=== PATIENT | male | born 1945 | race Caucasian/White ===

== ENCOUNTER 2017-07-17 10:33 | Inpatient (IN) | payer MEDICARE ==
[~2017-07-17] VITALS: Ht 180.3 cm; Wt 85.5 kg
[2017-07-17] VITALS (10 sets, daily range): BP systolic 153–164; BP diastolic 77–81; PULSE 52–74; RESP 16; TEMP 97.8–98.2; O2SAT 96–98
[2017-07-17] MEDS ORDERED: LEVO25TA4 PO (12:53)
[2017-07-17] MEDS ORDERED: ASPI-516 CHEW (12:53)
[2017-07-17] MEDS ORDERED: NALOXONE HCL 0.4 MG/ML AMP IV PUSH PRN (14:45)
[2017-07-17] MEDS ORDERED: CHLORHEXIDINE GLUCONATE 4% SOLN 120 ML BTL TOPICAL SCH (14:45)
[2017-07-17] MEDS ORDERED: NITROGLYCERIN 0.4 MG SL 25 TABS/BTL SL PRN (14:45)
[2017-07-17] MEDS ORDERED: CEFAZOLIN INJ 500 MG in SODIUM CHLORIDE 0.9% IRR BTL 500 ML IRRIGATION SCH (14:45)
[2017-07-17] MEDS ORDERED: ONDANSETRON HCL 4 MG/2 ML VIAL IVP PRN (14:45)
[2017-07-17] MEDS ORDERED: INSULIN REGULAR (IV INFUSION) 100 UNITS in SODIUM CHLORIDE 0.9% INJ 99 ML IV PRN ×2 (14:45→15:15)
[2017-07-17] MEDS ORDERED: LACTULOSE SYRUP 20 GM/30 ML CUP PO PRN (14:45)
[2017-07-17] MEDS ORDERED: ceFAZolin 2 GM PREMIX 50 ML IV SCH (14:45)
[2017-07-17] MEDS ORDERED: BISACODYL 10 MG SUPP RECTAL PRN (14:45)
[2017-07-17] MEDS ORDERED: PAPAVERINE INJ 60 MG, NITROGLYCERIN INJ 100 MCG, DILTIAZEM INJ 100 MG in SODIUM CHLORID... IRRIGATION SCH (14:45)
[2017-07-17] MEDS ORDERED: MAGNESIUM HYDROXIDE SUSP 30 ML CUP PO PRN (14:45)
[2017-07-17] MEDS ORDERED: SODIUM CHLORIDE 0.9% FLUSH 10 ML FLUSH IV FLUSH PRN ×2 (14:45)
[2017-07-17] MEDS ORDERED: DEXTROSE 50% IN WATER 50 ML VIAL(D50) IV PUSH PRN (14:45)
[2017-07-17] MEDS ORDERED: METOPROLOL TARTRATE 25 MG TAB PO SCH (14:45)
[2017-07-17] MEDS ORDERED: SENNOSIDES 8.6 MG TAB PO PRN (14:45)
[2017-07-17] MEDS ORDERED: PAPAVERINE INJ 60 MG, NITROGLYCERIN INJ 100 MCG, VERAPAMIL INJ 100 MG in SODIUM CHLORID... IRRIGATION SCH (15:00)
--- NOTE | 2017-07-17 15:02 | PD.CAR.PN ---
CVT Progress Note Subjective/Hospital Course: pt seen and evaluated / full H&P to follow sts data discussed with pt RISK SCORES About the STS Risk Calculator Procedure: CAB Only Risk of Mortality: 2.2% Morbidity or Mortality: 18.258% Long Length of Stay: 8.488% Short Length of Stay: 33.515% Permanent Stroke: 2.413% Prolonged Ventilation: 12.217% DSW Infection: 0.513% Renal Failure: 3.337% Reoperation: 7.114% Objective: Vital Signs Date Time Temp Pulse Resp B/P (MAP) Pulse Ox O2 Delivery O2 Flow Rate FiO2 07/17/17 13:00 60 07/17/17 12:30 97.8 62 16 153/81 (105) 97 (1) Hyperlipemia (2) Hypothyroidism (3) Hypertension (4) Coronary artery disease (5) ETOH abuse Fariba Medina July 17, 2017 15:02
--- NOTE | 2017-07-17 15:21 | MH ---
cc: Jessica Denise MD DATE OF ADMISSION: 07/17/2017 HISTORY OF PRESENT ILLNESS: A 72-year-old male that has a family history where his father had a ruptured aortic aneurysm and his grandfather had a ruptured aortic aneurysm on the paternal side and wanted to be evaluated by cardiology. He had an abnormal EKG with a right bundle branch block and was told he had a probable prior [place] that he was not aware of. Had a positive stress test which showed anterior septal ischemia. The patient underwent cardiac catheterization by Dr. Eladio Davis which showed proximal disease at the bifurcation of the first diagonal. There is approximately 80-90% lesions, heavily calcified. The LAD after the first septal branch is 99-100% occluded with [place] 1 flow. The LAD fills via collaterals from the diagonal vessel in the circumflex system. The left circumflex had severe stenosis in the mid segment with an 80-90% lesion noted, 2 obtuse marginals were noted afterwards. The right coronary artery is also diseased. There is approximately a 50% lesion and a mid 90% lesion. The PDA had evidence of small aneurysm with and without another 90% lesion noted. There were collaterals from the conus branch to a probable ramus vessel on the other side versus the LAD. There was some mild left subclavian stenosis of 10-20% lesion in the vessel. The BRUNER was widely patent. Ejection fraction 60%. He did have an echocardiogram when he had his initial workup at Dr. Brandt's office, which showed an ejection fraction of 60-65%, mild LVH, trivial to mild mitral regurgitation, mild tricuspid regurgitation. The patient was transferred to our facility to be evaluated by Dr. Jessica Denise for coronary artery bypass grafting. 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 This was contributed to some type of ALLERGIC REACTION TO A TRICHOMONAS OUTBREAK at age 26, hyperlipidemia, gastroesophageal reflux disease, questionable prior [place], hypertension, hypothyroidism. PAST SURGICAL HISTORY: Bilateral hip replacements, bilateral hernia repairs, appendectomy. He had a left breast lumpectomy which was benign nodule 7 or 8 years ago. ALLERGIES: NO KNOWN ALLERGIES. MEDICATIONS: Home medications: Aspirin 81 mg, Levothyroxine 25 mcg p.o. daily. He was to be started on Crestor 5 and Imdur 30. FAMILY HISTORY: Father again from a ruptured aortic aneurysm. Grandfather from a ruptured aortic aneurysm. Also, mother from complications of rheumatic fever when she was age 15, which apparently caused kidney failure. SOCIAL HISTORY: The patient is , has 2 children, lives with a significant other. He smoked for about 30 years, 1 pack per day. He quit 10 years ago. He does drink 6 shots of [place] Mist daily, occasional marijuana. No IV drugs. REVIEW OF SYSTEMS: GENERAL: No night sweats, fever, heat and cold intolerance. SKIN: No psoriasis, itching or hives. HEENT: No blurred vision, hearing loss. RESPIRATORY: No cough, shortness of breath. CARDIOVASCULAR: No current chest pain, no paroxysmal nocturnal dyspnea and orthopnea. GASTROINTESTINAL: No diarrhea or vomiting. GENITOURINARY: No burning, frequency, urgency. 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 ENDOCRINOLOGY: Positive for hypothyroidism. PHYSICAL EXAMINATION: VITAL SIGNS: Blood pressure 150/80, heart rate is 62, temperature T-max 97.8. GENERAL: The patient is awake, alert, no acute distress. HEENT: Head is normocephalic, atraumatic. Pupils equal and reactive. Oral mucosa pink, moist. NECK: Supple. No JVD. HEART: Sounds S1, S2. Regular rate and rhythm. No audible rubs, murmurs, gallops. LUNGS: Clear to auscultation. No wheezes, rales or rhonchi. ABDOMEN: Soft, nontender, no masses or organomegaly. EXTREMITIES: No cyanosis, clubbing, or edema. LABORATORY DATA: Most recent lab work on 07/12/2017, shows a hemoglobin of 16, hematocrit of 47. White cell count of 5.5, platelet count of 288. Sodium 137, potassium 4.7, BUN of 23 with a creatinine of 1.07, fasting glucose of 95. Urinalysis was unremarkable. Chest x-ray results showed over inflated lungs, tortuous aorta. EKG sinus rhythm with a right bundle branch block. ASSESSMENT AND PLAN: This is a 72-year-old male, multivessel coronary disease, normal ejection fraction. Risk factors include prior MO, prior CVA, hypothyroidism. STS data will be evaluated and documented in the electronic record. The cardiac films will be evaluated by Dr. Jessica Denise. Evaluation of coronary artery bypass grafting. In the meantime, the patient will obtain full workup to also include CT of the chest to rule out heavily calcified aorta. Further planning per Dr. Jessica Denise. Dictated by: ENE Harrington Pt examined. Chart and coronary angiograms reviewed and findings discussed with the pt, his daughter and significant other. He has severe multi-vessel CAD. He also has a significant regular intake of alcohol on a daily basis. Will plan on proceeding with surgical revascularization as a second case on Saturday barring other clinical findings. MD SENA Hall/MANDI , 02:37 PM , 03:11 PM MTDD
[2017-07-17] MEDS: THIAMINE HCL 100 MG TAB PO SCH (16:36)
[2017-07-17] MEDS: ASPIRIN 81 MG CHEW TAB CHEW SCH (16:37)
[2017-07-17] MEDS: MULTIVITAMIN TAB PO SCH (16:37)
[2017-07-17] MEDS: FOLIC ACID 1 MG TAB PO SCH (16:37)
[2017-07-17] MEDS: LORazepam 2 MG/ML VIAL IV PUSH PRN ×2 (16:39→21:06)
--- NOTE | 2017-07-17 16:44 | RADRPT ---
EXAM DATE: 07/17/2017 4:39 PM EDT AGE/SEX: 72 years / Male INDICATIONS: Preop for cardiac surgery. CLINICAL DATA: This is the patient's initial encounter. Patient reports that signs and symptoms have been present for 1 day and indicates a pain score of 0/10. MEDICAL/SURGICAL HISTORY: Hypothyroidism. Cerebrovascular accident. Appendectomy. Hernia repa ir. Bilateral hip replacement. COMPARISON: No prior [place] exams available for comparison. VELOCITY PARAMETERS: ICA/CCA Ratio: Right 1.0 , Left 0.8 ICA: Right 77 cm/sec, Left 53 cm/sec CCA: Right 76 cm/sec, Left 65 cm/sec ECA: Right 75 cm/sec, Left 53 cm/sec Vertebral: Right 43 cm/sec antegrade, Left 42 cm/sec antegrade FINDINGS: Right Carotid: Minimal plaque is seen at the carotid bulb region. No significant stenosis is visuali zed. The waveforms are within normal limits. Left Carotid: Minimal plaque is seen at the carotid bulb region. No significant stenosis is visualiz ed. The waveforms are within normal limits. Other: None. CONCLUSION: Minimal plaque at the carotid bulb regions without a significant stenosis. Electronically signed by: Moe Christiansen MD 07/17/2017 4:43 PM EDT
--- NOTE | 2017-07-17 16:48 | RADRPT ---
EXAM DATE: 07/17/2017 4:43 PM EDT AGE/SEX: 72 years / Male INDICATIONS: Preop for cardiac surgery. CLINICAL DATA: This is the patient's initial encounter. Patient reports that signs and symptoms have been present for 1 day and indicates a pain score of 0/10. MEDICAL/SURGICAL HISTORY: Hypothyroidism. Cerebrovascular accident. Appendectomy. Bilateral h ip replacement. Hernia repair. COMPARISON: No prior [place] exams available for comparison. MEASUREMENTS: RIGHT THIGH: Proximal:__3 mm Mid:__ 2 mm Distal:__2 mm LEFT THIGH: Proximal:__4 mm Mid:__2 mm Distal:__2 mm RIGHT CALF: Proximal:__Non-visualized Mid:__Non-visualized Distal:__Non-visualized LEFT CALF: Proximal:__2 mm Mid:__2 mm Distal:__2 mm FINDINGS: The venous system of the lower extremities are patent by color Doppler imaging. Measurements of the leg veins (in mm) are listed above. CONCLUSION: 1. Venous mapping as above. Electronically signed by: Sreekanth Henry MD 07/17/2017 4:47 PM EDT
--- NOTE | 2017-07-17 16:48 | RADRPT ---
EXAM DATE: 07/17/2017 4:45 PM EDT AGE/SEX: 72 years / Male INDICATIONS: Preop for cardiac surgery. CLINICAL DATA: This is the patient's initial encounter. Patient reports that signs and symptoms have been present for 1 day and indicates a pain score of 0/10. MEDICAL/SURGICAL HISTORY: Hypothyroidism. Cerebrovascular accident. Appendectomy. Hernia repa ir. COMPARISON: No prior [place] exams available for comparison. TECHNIQUE: Venous ultrasound of both lower extremities was performed from the inguinal ligament to t he proximal calf. Real-time, color Doppler and spectral tracing, compression and augmentation techni ques were used. FINDINGS: Right Leg: There is normal compressibility of the deep venous system from the inguinal region to the proximal calf. No echogenic clot is seen in the lumen of the common femoral, femoral, popliteal, an d posterior tibial veins. There is a normal response of the venous system to proximal and distal aug mentation and respiration. Left Leg: There is normal compressibility of the deep venous system from the inguinal region to the proximal calf. No echogenic clot is seen in the lumen of the common femoral, femoral, popliteal, and posterior tibial veins. There is a normal response of the venous system to proximal and distal augm entation and respiration. CONCLUSION: 1. No evidence of DVT. Electronically signed by: Sreekanth Henry MD 07/17/2017 4:46 PM EDT
[2017-07-17 17:23] LABS: AUTOMATED NEUTROPHIL # 2.5 TH/MM3 (1.8-7.7); BASOPHIL % 1.1 % (0.0-2.0); EOSINOPHIL # 0.1 TH/MM3 (0-0.4); EOSINOPHIL % 2.2 % (0.0-4.0); HEMOGLOBIN 14.4 GM/DL (13.0-17.0); LYMPH % 16.1 % (9.0-44.0); LYMPHOCYTE # 0.6 TH/MM3 (1.0-4.8); MEAN CORPUSCULAR HEMOGLOBIN 32.8 PG (27.0-34.0); MEAN CORPUSCULAR HGB CONC 33.5 % (32.0-36.0); MONO % 8.8 % (0.0-8.0); MONOCYTE # 0.3 TH/MM3 (0-0.9); NEUT % 71.8 % (16.0-70.0); PLATELET COUNT 240 TH/MM3 (150-450); RED BLOOD COUNT 4.39 MIL/MM3 (4.50-5.90); RED CELL DISTRIBUTION WIDTH 15.2 % (11.6-17.2); WHITE BLOOD COUNT 3.5 TH/MM3 (4.0-11.0)
[2017-07-17 17:44] LABS: ALBUMIN 3.5 GM/DL (3.4-5.0); AST (GOT) 12 U/L (15-37); BICARBONATE 23.9 MEQ/L (21.0-32.0); BLOOD UREA NITROGEN 17 MG/DL (7-18); CALCIUM 8.7 MG/DL (8.5-10.1); CHLORIDE 106 MEQ/L (98-107); CREATININE 0.77 MG/DL (0.60-1.30); GLOMERULAR FILTRATION RATE 99 ML/MIN (>89); GLUCOSE,RANDOM 84 MG/DL (74-106); SODIUM (NA) 139 MEQ/L (136-145)
[2017-07-17 17:49] LABS: ALKALINE PHOSPHATASE 76 U/L (45-117); ALT (GPT) 17 U/L (12-78); TOTAL BILIRUBIN ADULT 0.7 MG/DL (0.2-1.0); TOTAL PROTEIN 7.1 GM/DL (6.4-8.2)
--- NOTE | 2017-07-17 20:09 | RADRPT ---
EXAM DATE: 07/17/2017 8:03 PM EDT AGE/SEX: 72 years / Male INDICATIONS: Pre-op CABG, evaluate for aortic calcifications. CLINICAL DATA: This is the patient's initial encounter. Patient reports that signs and symptoms have been present for 1 day and indicates a pain score of 0/10. MEDICAL/SURGICAL HISTORY: Cardiovascular disease. Cerebrovascular disease. None. RADIATION DOSE: 9.59 CTDI (mGy) COMPARISON: No prior [place] exams available for comparison. TECHNIQUE: Multiple contiguous axial images were obtained through the chest without contrast. Image s were obtained in suspended respiration using multiple row detector helical technique. Using automa owen exposure control and adjustment of the mA and/or kV according to patient size, radiation dose was kept as low as reasonably achievable to obtain optimal diagnostic quality images. FINDINGS: Lungs: The lungs are symmetrically aerated. No infiltrates or nodular densities are seen. There is some mild linear opacities in the anterior right mid lung suggesting scarring or atelectasis. Mediastinum: No evidence of middle mediastinal adenopathy. Heart is normal in size. Prominent calcif ications throughout the coronary arteries. There is calcification along the lateral margin of the asc ending aorta extending from 6:00 to 12:00 and some scattered areas of calcification along the medial acetabulum the aorta. The ascending aorta aorta measures 3.8 cm in AP dimension. A few scattered calc ifications about the aortic arch and descending aortic wall. Pleurae: No evidence of focal thickening or pleural effusion. Axillae: Unremarkable. Bony Structures: Unremarkable. Miscellaneous: There is a moderate size hiatus hernia measures 5.6 cm in width. CONCLUSION: 1. Prominent diffuse coronary artery calcifications. 2. Prominent calcifications along the lateral margin of the ascending aorta wall with normal dimensi on of the ascending aorta. 3. Moderate size hiatus hernia. Electronically signed by: George Allen MD 07/17/2017 8:08 PM EDT
--- NOTE | 2017-07-17 20:56 | RADRPT ---
EXAM DATE: 07/17/2017 8:52 PM EDT AGE/SEX: 72 years / Male INDICATIONS: Evaluate for pneumonia, pneumothorax, or communicable disease. Pre op CABG. CLINICAL DATA: This is the patient's initial encounter. Patient reports that signs and symptoms have been present for 1 day and indicates a pain score of 0/10. MEDICAL/SURGICAL HISTORY: None. None. COMPARISON: [facility], CT THORAX W/O CONTRAST, 07/17/2017. . FINDINGS: PA and lateral views of the chest demonstrate the lungs to be symmetrically aerated without evidence of mass, infiltrate or effusion. The cardiomediastinal contours are unremarkable. There are 2 gricelda trinh deformities in the lower thoracic bodies which causes accentuation of the thoracic kyphosis. Com pression deformities are both 50-60% loss of height anteriorly.. CONCLUSION: 1. The lungs are symmetrically aerated and clear. 2. There are 2 lower thoracic compression deformities causing accentuation of the lower thoracic kyp hosis, age indeterminate. Electronically signed by: George Allen MD 07/17/2017 8:55 PM EDT
[2017-07-17] MEDS: SODIUM CHLORIDE 0.9% FLUSH 10 ML FLUSH IV FLUSH SCH ×2 (21:00→21:05)
[2017-07-17] MEDS: DOCUSATE SODIUM 50 MG/SENNA 8.6 MG TAB PO SCH (21:00)
[2017-07-17] MEDS: ATORVASTATIN 40 MG TAB PO SCH (21:05)
[2017-07-17 22:39] LABS: HEMOGLOBIN A1C 5.3 % (4.3-6.0)
[2017-07-18] VITALS (23 sets, daily range): BP systolic 121–148; BP diastolic 67–84; PULSE 20–90; RESP 12–22; TEMP 97.2–98.9; O2SAT 94–98
[2017-07-18] MEDS: LORazepam 2 MG/ML VIAL IV PUSH PRN ×2 (01:16→05:15)
[2017-07-18 04:27] LABS: CHOLESTEROL/ HDL RATIO 3.06 RATIO
[2017-07-18 05:08] LABS: BILIRUBIN, URINE NEG (NEG); BLOOD, URINE NEG (NEG); GLUCOSE,URINE NEG (NEG); KETONE, URINE NEG (NEG); MUCUS URINE FEW /lpf (OCC); NITRITE,URINE NEG (NEG); PH, URINE 6.5 (5.0-8.5); SQUAMOUS EPITHELIAL CELL URINE 1 /hpf (0-5); URINE COLOR YELLOW (YELLW/STRAW); URINE LEUKOCYTE ESTERASE NEG (NEG)
[2017-07-18] MEDS: LEVOTHYROXINE SODIUM 25 MCG TAB PO SCH (06:00)
[2017-07-18] MEDS: ISOSORBIDE MONONITRATE 30 MG CR TAB (IMDUR) PO SCH (06:15)
[2017-07-18] MEDS: SODIUM CHLORIDE 0.9% FLUSH 10 ML FLUSH IV FLUSH SCH ×4 (09:00→20:13)
[2017-07-18] MEDS: FOLIC ACID 1 MG TAB PO SCH (09:06)
[2017-07-18] MEDS: THIAMINE HCL 100 MG TAB PO SCH (09:06)
[2017-07-18] MEDS: MULTIVITAMIN TAB PO SCH (09:06)
[2017-07-18] MEDS: ASPIRIN 81 MG CHEW TAB CHEW SCH (09:07)
[2017-07-18] MEDS: DOCUSATE SODIUM 50 MG/SENNA 8.6 MG TAB PO SCH ×2 (09:07→20:13)
--- NOTE | 2017-07-18 09:31 | RADRPT ---
EXAM DATE: 07/18/2017 9:24 AM EDT AGE/SEX: 72 years / Male INDICATIONS: Confusion status post falling and hit head. CLINICAL DATA: This is the patient's initial encounter. Patient reports that signs and symptoms have been present for 1 day and indicates a pain score of 3/10. MEDICAL/SURGICAL HISTORY: Hypertension. Cerebrovascular disease. Appendectomy. RADIATION DOSE: 56.35 CTDI (mGy) COMPARISON: No prior [place] exams available for comparison. TECHNIQUE: CT of the head without contrast. Using automated exposure control and adjustment of the mA and/or kV according to patient size, radiation dose was kept as low as reasonably achievable to ob tain optimal diagnostic quality images. FINDINGS: Cerebrum: Moderate diffuse cerebral atrophy. The ventricles are normal for degree of atrophy. Mild-t o-moderate periventricular white matter hypodensities. No evidence of midline shift, mass lesion, hem orrhage or acute infarction. No extraaxial fluid collections are seen. Posterior Fossa: The cerebellum and brainstem are intact. The 4th ventricle is midline. The cerebe llopontine angle is unremarkable. Extracranial: The visualized portion of the orbits is intact. Posterior scalp hematoma and pilar. Skull: The calvaria is intact. No evidence of skull fracture. CONCLUSION: 1. Senescent changes with mild to moderate periventricular ischemic white matter demyelination. 2. No acute intracranial abnormality. Electronically signed by: Landen Clements MD 07/18/2017 9:30 AM EDT
[2017-07-18] MEDS ORDERED: TETANUS/DIPHTHERIA TOXOID ADULT 0.5 ML VIAL IM ONE (10:45)
[2017-07-18] MEDS ORDERED: FLUMAZENIL 0.5 MG/5 ML VIAL IV PUSH PRN (10:45)
[2017-07-18] MEDS ORDERED: LORazepam 2 MG/ML VIAL IV PUSH PRN ×4 (10:45)
[2017-07-18] MEDS ORDERED: LORazepam 2 MG TAB PO PRN (10:45)
[2017-07-18] MEDS ORDERED: LORazepam 1 MG TAB PO PRN (10:45)
--- NOTE | 2017-07-18 10:53 | PD.CAR.PN ---
CVT Progress Note Subjective/Hospital Course: A 72-year-old male transfer from [facility], had an abnormal EKG with a right bundle branch block and was told he had a probable prior [place] that he was not aware of. Had a positive stress test which showed anterior septal ischemia. The patient underwent cardiac catheterization by Dr. Eladio Davis which showed proximal disease at the bifurcation of the first diagonal. There is approximately 80-90% lesions, heavily calcified. The LAD after the first septal branch is 99-100% occluded with [place] 1 flow. The LAD fills via collaterals from the diagonal vessel in the circumflex system. The left circumflex had severe stenosis in the mid segment with an 80-90% lesion noted, 2 obtuse marginals were noted afterwards. The right coronary artery is also diseased. There is approximately a 50% lesion and a mid 90% lesion. The PDA had evidence of small aneurysm with and without another 90% lesion noted. There were collaterals from the conus branch to a probable ramus vessel on the other side versus the LAD. There was some mild left subclavian stenosis of 10- 20% lesion in the vessel. The BRUNER was widely patent. Ejection fraction 60%. He did have an echocardiogram when he had his initial workup at Dr. Brandt's office, which showed an ejection fraction of 60-65%, mild LVH, trivial to mild mitral regurgitation, mild tricuspid regurgitation. Transferred for eval for CABG bypass grafting. 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 This was contributed to some type of ALLERGIC REACTION TO A TRICHOMONAS OUTBREAK at age 26, hyperlipidemia, gastroesophageal reflux disease, questionable prior [place], hypertension, hypothyroidism. Drinks 6- 8 shots of whisky per day 07/18 pt agitation last pm , nursing eval for CIWA protocol , given ativan got out of bed , unclothed fell hit his on door jam , sustained a 4cm length and 0.2cm deep area was irrigated with normal saline , cleansed with betadine and under sterile technique 5 pilar were placed to close wound wound is now closed and approximated ancef 1 gram q8 x 3 doses and TD dose IM given fall risk precautions, consult Hospitalist for medical management will now hold surgery until Saturday CT Brain: 1. Senescent changes with mild to moderate periventricular ischemic white matter demyelination. 2. No acute intracranial abnormality. Objective: GENERAL: pt awake , no agitation at present , eating breakfast with his fingers SKIN: Warm and dry. dry dressing to scalp HEAD: Normocephalic. EYES: No scleral icterus. No injection or drainage. [place] NECK: Supple, trachea midline. No JVD or lymphadenopathy. CARDIOVASCULAR: Regular rate and rhythm without murmurs, gallops, or rubs. RESPIRATORY: Breath sounds equal bilaterally. No accessory muscle use. GASTROINTESTINAL: Abdomen soft, non-tender, nondistended. MUSCULOSKELETAL: No cyanosis, or edema. BACK: Nontender without obvious deformity. No CVA tenderness. Vital Signs Date Time Temp Pulse Resp B/P (MAP) Pulse Ox O2 Delivery O2 Flow Rate FiO2 07/18/17 10:00 90 07/18/17 09:00 70 07/18/17 08:00 80 07/18/17 07:20 77 07/18/17 07:20 98.9 20 20 138/79 (98) 96 07/18/17 07:10 81 20 138/81 (100) 94 07/18/17 06:00 64 07/18/17 05:00 60 07/18/17 04:00 62 07/18/17 03:00 97.2 70 12 133/84 (100) 97 07/18/17 03:00 54 07/18/17 02:00 56 07/18/17 01:00 56 07/18/17 00:06 97.5 62 12 148/76 (100) 97 07/18/17 00:00 54 07/17/17 23:00 62 07/17/17 22:00 74 07/17/17 21:00 60 07/17/17 20:00 62 07/17/17 20:00 98.2 60 16 155/77 (103) 98 07/17/17 19:00 67 07/17/17 16:00 64 07/17/17 16:00 97.9 57 16 164/77 (106) 96 07/17/17 15:00 52 07/17/17 14:00 60 07/17/17 13:00 72 07/17/17 13:00 60 07/17/17 12:30 97.8 62 16 153/81 (105) 97 Labs: Laboratory Tests Test 07/18/17 03:42 07/18/17 04:40 Triglycerides Level 188 MG/DL (42-150) Cholesterol Level 227 MG/DL (120-200) LDL Cholesterol 115 MG/DL (0-99) HDL Cholesterol 74.0 MG/DL (40.0-60.0) Cholesterol/HDL Ratio 3.06 RATIO Urine Color YELLOW (YELLW/STRAW) Urine Turbidity CLEAR (CLEAR) Urine pH 6.5 (5.0-8.5) Urine Specific [place] 1.016 (1.002-1.035) Urine Protein NEG mg/dL (NEG-TRACE) Urine Glucose (UA) NEG mg/dL (NEG) Urine Ketones NEG mg/dL (NEG) Urine Occult Blood NEG (NEG) Urine Nitrite NEG (NEG) Urine Bilirubin NEG (NEG) Urine Urobilinogen LESS THAN 2.0 MG/DL (LESS Urine Leukocyte Esterase NEG (NEG) Urine RBC 1 /hpf (0-3) Urine WBC LESS THAN 1 /hpf (0-5) Urine Squamous Epithelial Cells 1 /hpf (0-5) Urine Mucus FEW /lpf (OCC) Microscopic Urinalysis Comment CULT NOT INDICATED Result Diagram: 07/17/17 1700 07/17/17 1700 Telemetry: NSR (1) Hyperlipemia Plan: on statin (2) Hypothyroidism Plan: on Synthroid (3) Hypertension (4) Coronary artery disease Plan: ASA, hold BB HR 60 (5) ETOH abuse Plan: CIWA protocol (6) Laceration Plan: pilar to occipital area ancef x 3 doses TD dose Fariba Medina July 18, 2017 10:53
--- NOTE | 2017-07-18 16:25 | PD.CONS ---
HPI Service [facility] Hospitalists Consult Requested By Primary Care Physician No Primary Care Physician Diagnoses: History of Present Illness 72-year-old male with a history of hyperlipidemia, coronary artery disease, GERD , chronic alcohol use of about 6 shots of whiskey daily who is admitted to [facility] for treatment of coronary artery disease requiring CABG. Patient says he was doing all right until last night. He became agitated, fell , with laceration to the posterior skull which has been stapled. Patient is not sure what has caused his fall. He says he is feeling fine. Denies any chest pain, shortness of breath, nausea, vomiting, dysuria. He is currently alert and oriented 3. He is very upset that he will not have the surgery tomorrow. Review of Systems Except as stated in HPI: all other systems reviewed are Neg Past Family Social History Allergies: Coded Allergies: No Known Allergies (Unverified , 07/17/17) Past Medical History Hyperlipidemia Coronary artery disease GERD History of CVA with residual left-sided weakness. Hypertension Hypothyroidism on replacement. Past Surgical History Bilateral inguinal hernia surgeries. Appendectomy. Bilateral hip replacements. Reported Medications Current Medications Medications (Trade) Dose Ordered Sig/Ray Route Start Time Stop Time Status Last Admin (NS Flush) 2 ml BID IV FLUSH 07/17/17 21:00 07/18/17 09:00 (NS Flush) 2 ml UNSCH PRN IV FLUSH 07/17/17 14:45 Cefazolin Sodium 500 mg/Sodium Chloride 505 ml @ 0 mls/hr OCULAR PATHOLOGIST IRRIGATION 07/17/17 14:45 07/24/17 14:44 (Lopressor) 12.5 mg OCULAR PATHOLOGIST PO 07/17/17 14:45 07/24/17 14:44 (Hibiclens 4% Top Soln) 1 applic OCULAR PATHOLOGIST TOPICAL 07/17/17 14:45 07/24/17 14:44 (D50w (Vial) Inj) 50 ml UNSCH PRN IV PUSH 07/17/17 14:45 (Aspirin Chew) 81 mg DAILY CHEW 07/17/17 15:00 07/18/17 09:07 (Synthroid) 25 mcg DAILY@0600 PO 07/18/17 06:00 07/18/17 06:00 (Lipitor) 40 mg HS PO 07/17/17 21:00 5/23/18 21:05 (Folate) 1 mg DAILY PO 07/17/17 14:45 07/18/17 09:06 (Vitamin B1) 100 mg DAILY PO 07/17/17 14:45 07/18/17 09:06 (Theragran) 1 tab DAILY PO 07/17/17 14:45 07/18/17 09:06 (Imdur) 30 mg DAILY@07 PO 07/18/17 07:00 07/18/17 06:15 (Nitrostat Sl) 0.4 mg Q5M PRN SL 07/17/17 14:45 (NS Flush) 2 ml UNSCH PRN IV FLUSH 07/17/17 14:45 (NS Flush) 2 ml BID IV FLUSH 07/17/17 21:00 (Tylenol) 650 mg Q4H PRN PO 07/17/17 14:45 (Zofran Inj) 4 mg Q6H PRN IVP 07/17/17 14:45 (Narcan Inj) 0.4 mg UNSCH PRN IV PUSH 07/17/17 14:45 (Terri-Colace) 1 tab BID PO 07/17/17 21:00 07/18/17 09:07 (Milk Of Magnesia Liq) 30 ml Q12H PRN PO 07/17/17 14:45 (Senokot) 17.2 mg Q12H PRN PO 07/17/17 14:45 (Dulcolax Supp) 10 mg DAILY PRN RECTAL 07/17/17 14:45 (Lactulose Liq) 30 ml DAILY PRN PO 07/17/17 14:45 Papaverine HCl 60 mg/Nitroglycerin 100 mcg/Verapamil HCl 100 mg/Sodium Chloride 100 ml @ 0 mls/hr OCULAR PATHOLOGIST IRRIGATION 07/17/17 15:00 07/24/17 14:44 (Ativan Inj) 1 mg Q4H PRN IV PUSH 07/17/17 15:15 07/18/17 05:15 Insulin Human Regular 100 units/ Sodium Chloride 100 ml @ 3 mls/hr TITRATE PRN IV 07/17/17 15:15 Cefazolin Sodium 1000 mg/Sodium Chloride 100 ml @ 200 mls/hr Q8H IV 07/18/17 11:00 07/19/17 03:29 07/18/17 12:21 (Romazicon Inj) 0.2 mg Q1M PRN IV PUSH 07/18/17 10:45 (Ativan) 1 mg Q4H PRN PO 07/18/17 10:45 (Ativan Inj) 1 mg Q4H PRN IV PUSH 07/18/17 10:45 (Ativan) 2 mg Q2H PRN PO 07/18/17 10:45 (Ativan Inj) 2 mg Q2H PRN IV PUSH 07/18/17 10:45 (Ativan Inj) 2 mg Q1H PRN IV PUSH 07/18/17 10:45 (Ativan Inj) 2 mg Q15M PRN IV PUSH 07/18/17 10:45 Family History Father from ruptured aortic aneurysm. Mother from complications of rheumatic fever when patient was 13 years old Social History Patient quit smoking 10 years ago. Patient drinks about 6 shots of whiskey daily. Denies any history of withdrawal. However he is not sure if he has had a seizure. Patient reports occasional marijuana use. Denies any other illicit or IV drug use. Physical Exam Vital Signs Vital Signs Date Time Temp Pulse Resp B/P (MAP) Pulse Ox O2 Delivery O2 Flow Rate FiO2 07/18/17 15:00 79 07/18/17 15:00 98.8 75 18 121/67 (85) 96 07/18/17 14:00 68 07/18/17 13:00 80 07/18/17 12:00 74 07/18/17 11:00 61 07/18/17 11:00 98.0 60 20 139/72 (94) 95 07/18/17 10:00 90 07/18/17 09:00 70 07/18/17 08:00 80 07/18/17 07:20 77 07/18/17 07:20 98.9 20 20 138/79 (98) 96 07/18/17 07:10 81 20 138/81 (100) 94 07/18/17 06:00 64 07/18/17 05:00 60 07/18/17 04:00 62 07/18/17 03:00 97.2 70 12 133/84 (100) 97 07/18/17 03:00 54 07/18/17 02:00 56 07/18/17 01:00 56 07/18/17 00:06 97.5 62 12 148/76 (100) 97 07/18/17 00:00 54 07/17/17 23:00 62 07/17/17 22:00 74 07/17/17 21:00 60 07/17/17 20:00 62 07/17/17 20:00 98.2 60 16 155/77 (103) 98 07/17/17 19:00 67 Physical Exam GENERAL: This is a well-nourished, well-developed patient, in no apparent distress. Alert and oriented 3. SKIN: No rashes, ecchymoses or lesions. Cool and dry. HEAD: Normocephalic except for posterior head laceration which has been stapled. Minimal bleeding. No significant hematoma noted. EYES: Pupils equal round and reactive. Extraocular motions intact. No scleral icterus. No injection or drainage. ENT: Nose without bleeding, purulent drainage or septal hematoma. Throat without erythema, tonsillar hypertrophy or exudate. Uvula midline. Airway patent. NECK: Trachea midline. No JVD or lymphadenopathy. Supple, nontender, no meningeal signs. CARDIOVASCULAR: Regular rate and rhythm without murmurs, gallops, or rubs. RESPIRATORY: Clear to auscultation. Breath sounds equal bilaterally. No wheezes , rales, or rhonchi. GASTROINTESTINAL: Abdomen soft, non-tender, nondistended. No hepato-splenomegaly , or palpable masses. No guarding. MUSCULOSKELETAL: Extremities without clubbing, cyanosis, or edema. No joint tenderness, effusion, or edema noted. No calf tenderness. Negative Homans sign bilaterally. NEUROLOGICAL: Awake and alert. Cranial nerves II through XII intact. Motor and sensory grossly within normal limits. Five out of 5 muscle strength in all muscle groups. Normal speech. No tremor. Laboratory Laboratory Tests Test 07/17/17 16:45 07/17/17 17:00 07/18/17 03:42 07/18/17 04:40 Nasal Screen MRSA (PCR) MRSA NOT DETECTED White Blood Count 3.5 Red Blood Count 4.39 Hemoglobin 14.4 Hematocrit 43.0 Mean Corpuscular Volume 98.0 Mean Corpuscular Hemoglobin 32.8 Mean Corpuscular Hemoglobin Concent 33.5 Red Cell Distribution Width 15.2 Platelet Count 240 Mean Platelet Volume 8.0 Neutrophils (%) (Auto) 71.8 Lymphocytes (%) (Auto) 16.1 Monocytes (%) (Auto) 8.8 Eosinophils (%) (Auto) 2.2 Basophils (%) (Auto) 1.1 Neutrophils # (Auto) 2.5 Lymphocytes # (Auto) 0.6 Monocytes # (Auto) 0.3 Eosinophils # (Auto) 0.1 Basophils # (Auto) 0.0 CBC Comment DIFF FINAL Differential Comment Blood Urea Nitrogen 17 Creatinine 0.77 Random Glucose 84 Total Protein 7.1 Albumin 3.5 Calcium Level 8.7 Alkaline Phosphatase 76 Aspartate Amino Transf (AST/SGOT) 12 Alanine Aminotransferase (ALT/SGPT) 17 Total Bilirubin 0.7 Sodium Level 139 Potassium Level 3.8 Chloride Level 106 Carbon Dioxide Level 23.9 Anion Gap 9 Estimat Glomerular Filtration Rate 99 Hemoglobin A1c 5.3 Triglycerides Level 188 Cholesterol Level 227 LDL Cholesterol 115 HDL Cholesterol 74.0 Cholesterol/HDL Ratio 3.06 Urine Color YELLOW Urine Turbidity CLEAR Urine pH 6.5 Urine Specific [place] 1.016 Urine Protein NEG Urine Glucose (UA) NEG Urine Ketones NEG Urine Occult Blood NEG Urine Nitrite NEG Urine Bilirubin NEG Urine Urobilinogen LESS THAN 2.0 Urine Leukocyte Esterase NEG Urine RBC 1 Urine WBC LESS THAN 1 Urine Squamous Epithelial Cells 1 Urine Mucus FEW Microscopic Urinalysis Comment CULT NOT INDICATED Result Diagram: 07/17/17 1700 07/17/17 1700 Imaging Last Impressions Head CT 07/18/17 0000 Signed Impressions: CONCLUSION: 1. Senescent changes with mild to moderate periventricular ischemic white rosario er demyelination. 2. No acute intracranial abnormality. Lower Extremity Ultrasound 07/17/17 Signed Impressions: CONCLUSION: 1. Venous mapping as above. Chest X-Ray 07/17/17 Signed Impressions: CONCLUSION: 1. The lungs are symmetrically aerated and clear. 2. There are 2 lower thoracic compression deformities causing accentuation of the lower thoracic kyphosis, age indeterminate. Chest CT 07/17/17 Signed Impressions: CONCLUSION: 1. Prominent diffuse coronary artery calcifications. 2. Prominent calcifications along the lateral margin of the ascending aorta wa ll with normal dimension of the ascending aorta. 3. Moderate size hiatus hernia. Carotid Artery Ultrasound 07/17/17 Signed Impressions: CONCLUSION: Minimal plaque at the carotid bulb regions without a significant stenosis. Assessment and Plan Assessment and Plan //Multivessel CAD = Echocardiogram recently with ejection fraction 60%, mild LVH, trivial valvular disease. = Continue medical management as per cardiothoracic surgery. = Patient will need CABG. Management as per cardiothoracic surgery. //Status post fall last night -Patient unable to tell me the details surrounding his fall. = Likely secondary to hospital induced delirium overnight. Will proceed with syncopal workup to include bilateral carotid ultrasound, orthostatic vital signs. Patient had recent echocardiogram outside. Continue to monitor on telemetry. //Suspected alcohol withdrawal, acute CIWA protocol. LFTs unremarkable. Will check INR. //Suspected chronic dementia. //History of previous CVA with residual left-sided weakness -CT brain with senescent changes. = Patient appears to have a poor memory. Patient is alert and oriented 3 however. = We will check B12, TSH. //Hypothyroidism. Chronic. Continue replacement //Hyperlipidemia. Continue statin. //GERD. Chronic. PPI. //Leukopenia. Uncertain etiology. Could be lab error repeat labs. Discussed Condition With Patient, nurse Son Maldonado MD July 18, 2017 16:25
[2017-07-18 16:44] LABS: AUTOMATED NEUTROPHIL # 4.9 TH/MM3 (1.8-7.7); BASOPHIL % 0.7 % (0.0-2.0); EOSINOPHIL # 0.1 TH/MM3 (0-0.4); EOSINOPHIL % 1.1 % (0.0-4.0); HEMATOCRIT 47.8 % (39.0-51.0); HEMOGLOBIN 15.9 GM/DL (13.0-17.0); LYMPH % 12.4 % (9.0-44.0); LYMPHOCYTE # 0.8 TH/MM3 (1.0-4.8); MEAN CELL VOLUME 97.8 FL (80.0-100.0); MEAN CORPUSCULAR HEMOGLOBIN 32.6 PG (27.0-34.0); MEAN CORPUSCULAR HGB CONC 33.3 % (32.0-36.0); MEAN PLATELET VOLUME 9.1 FL (7.0-11.0); MONO % 8.4 % (0.0-8.0); MONOCYTE # 0.5 TH/MM3 (0-0.9); NEUT % 77.4 % (16.0-70.0); PLATELET COUNT 257 TH/MM3 (150-450); RED BLOOD COUNT 4.89 MIL/MM3 (4.50-5.90); RED CELL DISTRIBUTION WIDTH 15.4 % (11.6-17.2); WHITE BLOOD COUNT 6.3 TH/MM3 (4.0-11.0)
[2017-07-18 16:46] LABS: INTERNATIONAL NORMALIZED RATIO 0.9 RATIO; PROTHROMBIN TIME - PATIENT 9.5 SEC (9.8-11.6)
[2017-07-18] MEDS: ATORVASTATIN 40 MG TAB PO SCH (20:13)
[2017-07-19] VITALS (17 sets, daily range): BP systolic 89–111; BP diastolic 61–68; PULSE 60–98; RESP 16–20; TEMP 97.5–98.7; O2SAT 93–97
[2017-07-19] MEDS: ISOSORBIDE MONONITRATE 30 MG CR TAB (IMDUR) PO SCH (06:06)
[2017-07-19] MEDS: LEVOTHYROXINE SODIUM 25 MCG TAB PO SCH (06:06)
[2017-07-19] MEDS: FOLIC ACID 1 MG TAB PO SCH (09:26)
[2017-07-19] MEDS: THIAMINE HCL 100 MG TAB PO SCH (09:26)
[2017-07-19] MEDS: ASPIRIN 81 MG CHEW TAB CHEW SCH (09:27)
[2017-07-19] MEDS: SODIUM CHLORIDE 0.9% FLUSH 10 ML FLUSH IV FLUSH SCH ×3 (09:27→21:00)
[2017-07-19] MEDS: DOCUSATE SODIUM 50 MG/SENNA 8.6 MG TAB PO SCH ×2 (09:27→21:00)
[2017-07-19] MEDS: MULTIVITAMIN TAB PO SCH (09:27)
--- NOTE | 2017-07-19 10:59 | HHI.PR ---
Subjective Remarks Says he is feeling all right. Denies any chest pain or shortness of breath. Denies nausea or vomiting. Denies headache. Objective Vital Signs Date Time Temp Pulse Resp B/P (MAP) Pulse Ox O2 Delivery O2 Flow Rate FiO2 07/19/17 08:00 81 07/19/17 08:00 98.3 81 18 98/61 (73) 93 07/19/17 06:00 61 07/19/17 05:22 60 07/19/17 04:00 76 07/19/17 03:00 73 07/19/17 03:00 97.9 73 20 111/65 (80) 93 07/18/17 23:00 70 07/18/17 23:00 98.7 70 18 128/71 (90) 98 07/18/17 19:00 71 07/18/17 19:00 98.6 71 22 138/81 (100) 95 07/18/17 18:00 76 07/18/17 17:00 80 07/18/17 16:00 71 07/18/17 15:00 79 07/18/17 15:00 98.8 75 18 121/67 (85) 96 07/18/17 14:00 68 07/18/17 13:00 80 07/18/17 12:00 74 07/18/17 11:00 61 07/18/17 11:00 98.0 60 20 139/72 (94) 95 I/O 07/18/17 07/18/17 07/18/17 07/19/17 07/19/17 07/19/17 07:00 15:00 23:00 07:00 15:00 23:00 Intake Total 480 ml 960 ml 240 ml Output Total 800 ml 700 ml Balance -320 ml 260 ml 240 ml Intake Oral 480 ml 960 ml 240 ml Output Urine Total 800 ml 700 ml # Voids 2 # Bowel Movements 1 0 1 Result Diagram: 07/18/17 1555 07/17/17 1700 Objective Remarks GENERAL: Patient sitting up in bed. Appears comfortable. SKIN: Warm and dry. HEAD: Posterior head laceration without bleeding. No surrounding erythema. EYES: No scleral icterus. No injection or drainage. NECK: Supple, trachea midline. No JVD. CARDIOVASCULAR: Regular rate and rhythm without murmurs, gallops, or rubs. RESPIRATORY: Breath sounds equal bilaterally. No accessory muscle use. GASTROINTESTINAL: Abdomen soft, non-tender, nondistended. MUSCULOSKELETAL: No cyanosis, or edema. BACK: Nontender without obvious deformity. No CVA tenderness. A/P Assessment and Plan //Multivessel CAD = Echocardiogram recently with ejection fraction 60%, mild LVH, trivial valvular disease. = Continue medical management as per cardiothoracic surgery. = Patient will need CABG. Management as per cardiothoracic surgery. //Status post fall 07/18 in the bindery helper -Patient unable to tell me the details surrounding his fall. = Likely secondary to hospital induced delirium overnight. Will proceed with syncopal workup to include bilateral carotid ultrasound, orthostatic vital signs. Patient had recent echocardiogram outside. Continue to monitor on telemetry. = 07/19. It does not appear that patient has clinically significant alcohol withdrawal. Will discontinue CIWA protocol. Patient feels that fall was secondary to his isosorbide dose which was given for the first time on 07/18 around 6 AM, with fall occurring around 7 AM. Blood pressure low today in the 90s. Will discontinue isosorbide. Continue to watch blood pressure. Orthostatic vital signs are still pending, reordered. //Suspected alcohol withdrawal, acute CIWA protocol. LFTs unremarkable. Will check INR. = 07/19. Unlikely alcohol withdrawal. We will continue to monitor, but will discontinue CIWA protocol. //Suspected chronic dementia. //History of previous CVA with residual left-sided weakness -CT brain with senescent changes. = Patient appears to have a poor memory. Patient is alert and oriented 3 however. = B12 only in the 250s. Will start replacement. Patient appears to be alert and oriented 4. //Vitamin B12 deficiency. B12 253. Will start replacement. //Thyroidism. TSH slightly elevated 4.8. Uncertain of compliance at home. Recommend recheck as outpatient in 1 month. //Hyperlipidemia. Continue statin. //GERD. Chronic. PPI. //Leukopenia. Likely secondary to lab error. Resolved. Discharge Planning We will continue to follow. Son Maldonado MD July 19, 2017 10:59
[2017-07-19] MEDS ORDERED: ENALAPRILAT 1.25 MG/ML VIAL IV PUSH PRN (11:00)
--- NOTE | 2017-07-19 16:25 | PD.CAR.PN ---
CVT Progress Note Subjective/Hospital Course: A 72-year-old male transfer from [facility], had an abnormal EKG with a right bundle branch block and was told he had a probable prior [place] that he was not aware of. Had a positive stress test which showed anterior septal ischemia. The patient underwent cardiac catheterization by Dr. Eladio Davis which showed proximal disease at the bifurcation of the first diagonal. There is approximately 80-90% lesions, heavily calcified. The LAD after the first septal branch is 99-100% occluded with [place] 1 flow. The LAD fills via collaterals from the diagonal vessel in the circumflex system. The left circumflex had severe stenosis in the mid segment with an 80-90% lesion noted, 2 obtuse marginals were noted afterwards. The right coronary artery is also diseased. There is approximately a 50% lesion and a mid 90% lesion. The PDA had evidence of small aneurysm with and without another 90% lesion noted. There were collaterals from the conus branch to a probable ramus vessel on the other side versus the LAD. There was some mild left subclavian stenosis of 10- 20% lesion in the vessel. The BRUNER was widely patent. Ejection fraction 60%. He did have an echocardiogram when he had his initial workup at Dr. Brandt's office, which showed an ejection fraction of 60-65%, mild LVH, trivial to mild mitral regurgitation, mild tricuspid regurgitation. Transferred for eval for CABG bypass grafting. 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 This was contributed to some type of ALLERGIC REACTION TO A TRICHOMONAS OUTBREAK at age 26, hyperlipidemia, gastroesophageal reflux disease, questionable prior NH, hypertension, hypothyroidism. Drinks 6- 8 shots of whisky per day 07/18 pt agitation last pm , nursing eval for CIWA protocol , given ativan got out of bed , unclothed fell hit his on door jam , sustained a 4cm length and 0.2cm deep area was irrigated with normal saline , cleansed with betadine and under sterile technique 5 pilar were placed to close wound wound is now closed and approximated ancef 1 gram q8 x 3 doses and TD dose IM given fall risk precautions, consult Hospitalist for medical management will now hold surgery until Saturday CT Brain: 1. Senescent changes with mild to moderate periventricular ischemic white matter demyelination. 2. No acute intracranial abnormality. 07/19 doing well, no complaints of agitation/ no tremors noted for surgery on Objective: Vital Signs Date Time Temp Pulse Resp B/P (MAP) Pulse Ox O2 Delivery O2 Flow Rate FiO2 07/19/17 14:00 86 07/19/17 13:00 86 07/19/17 11:45 95 07/19/17 11:45 98.0 95 18 89/62 (71) 95 07/19/17 11:00 94 07/19/17 10:00 96 07/19/17 09:00 80 07/19/17 08:00 81 07/19/17 08:00 80 07/19/17 08:00 98.3 81 18 98/61 (73) 93 07/19/17 06:00 61 07/19/17 05:22 60 07/19/17 04:00 76 07/19/17 03:00 73 07/19/17 03:00 97.9 73 20 111/65 (80) 93 07/18/17 23:00 70 07/18/17 23:00 98.7 70 18 128/71 (90) 98 07/18/17 19:00 71 07/18/17 19:00 98.6 71 22 138/81 (100) 95 07/18/17 18:00 76 07/18/17 17:00 80 Result Diagram: 07/18/17 1555 07/17/17 1700 (1) Hyperlipemia Plan: on statin (2) Hypothyroidism Plan: on Synthroid (3) Hypertension (4) Coronary artery disease Plan: ASA, hold BB HR 60 (5) ETOH abuse Plan: CIWA protocol dc (6) Laceration Plan: pilar to occipital area ancef x 3 doses TD dose Fariba Medina July 19, 2017 16:25
[2017-07-19] MEDS: ATORVASTATIN 40 MG TAB PO SCH (21:19)
[2017-07-19] MEDS: ACETAMINOPHEN 325 MG TAB PO PRN (21:22)
[2017-07-20] VITALS (29 sets, daily range): BP systolic 113–153; BP diastolic 57–82; PULSE 47–98; RESP 16–18; TEMP 97.6–98.5; O2SAT 94–98
[2017-07-20] MEDS: LEVOTHYROXINE SODIUM 25 MCG TAB PO SCH (06:00)
[2017-07-20] MEDS: MULTIVITAMIN TAB PO SCH (08:43)
[2017-07-20] MEDS: THIAMINE HCL 100 MG TAB PO SCH (08:43)
[2017-07-20] MEDS: ASPIRIN 81 MG CHEW TAB CHEW SCH (08:44)
[2017-07-20] MEDS: FOLIC ACID 1 MG TAB PO SCH (08:45)
[2017-07-20] MEDS: DOCUSATE SODIUM 50 MG/SENNA 8.6 MG TAB PO SCH ×2 (08:45→20:55)
[2017-07-20] MEDS: SODIUM CHLORIDE 0.9% FLUSH 10 ML FLUSH IV FLUSH SCH ×2 (08:45→08:46)
[2017-07-20] MEDS: CYANOCOBALAMIN 1000 MCG/ML VIAL IM SCH (08:46)
--- NOTE | 2017-07-20 09:32 | PD.CAR.PN ---
CVT Progress Note Subjective/Hospital Course: A 72-year-old male transfer from [facility], had an abnormal EKG with a right bundle branch block and was told he had a probable prior [place] that he was not aware of. Had a positive stress test which showed anterior septal ischemia. The patient underwent cardiac catheterization by Dr. Eladio Davis which showed proximal disease at the bifurcation of the first diagonal. There is approximately 80-90% lesions, heavily calcified. The LAD after the first septal branch is 99-100% occluded with [place] 1 flow. The LAD fills via collaterals from the diagonal vessel in the circumflex system. The left circumflex had severe stenosis in the mid segment with an 80-90% lesion noted, 2 obtuse marginals were noted afterwards. The right coronary artery is also diseased. There is approximately a 50% lesion and a mid 90% lesion. The PDA had evidence of small aneurysm with and without another 90% lesion noted. There were collaterals from the conus branch to a probable ramus vessel on the other side versus the LAD. There was some mild left subclavian stenosis of 10- 20% lesion in the vessel. The BRUNER was widely patent. Ejection fraction 60%. He did have an echocardiogram when he had his initial workup at Dr. Brandt's office, which showed an ejection fraction of 60-65%, mild LVH, trivial to mild mitral regurgitation, mild tricuspid regurgitation. Transferred for eval for CABG bypass grafting. 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 This was contributed to some type of ALLERGIC REACTION TO A TRICHOMONAS OUTBREAK at age 26, hyperlipidemia, gastroesophageal reflux disease, questionable prior [place], hypertension, hypothyroidism. Drinks 6- 8 shots of whisky per day 07/18 pt agitation last pm , nursing eval for CIWA protocol , given ativan got out of bed , unclothed fell hit his on door jam , sustained a 4cm length and 0.2cm deep area was irrigated with normal saline , cleansed with betadine and under sterile technique 5 pilar were placed to close wound wound is now closed and approximated ancef 1 gram q8 x 3 doses and TD dose IM given fall risk precautions, consult Hospitalist for medical management will now hold surgery until Saturday CT Brain: 1. Senescent changes with mild to moderate periventricular ischemic white matter demyelination. 2. No acute intracranial abnormality. 07/19 doing well, no complaints of agitation/ no tremors noted for surgery on 07/20 Doing well OR Saturday Objective: Vital Signs Date Time Temp Pulse Resp B/P (MAP) Pulse Ox O2 Delivery O2 Flow Rate FiO2 07/20/17 06:00 66 07/20/17 04:00 84 07/20/17 03:00 47 07/20/17 03:00 97.9 63 18 113/57 (75) 94 07/20/17 02:00 96 07/20/17 01:00 98 07/20/17 00:00 84 07/19/17 23:00 98.4 70 18 111/65 (80) 93 07/19/17 23:00 73 07/19/17 22:25 22 07/19/17 19:00 68 07/19/17 19:00 98.7 70 18 110/68 (82) 97 07/19/17 18:00 96 07/19/17 17:00 84 07/19/17 16:46 80 07/19/17 16:46 97.5 80 16 103/61 (75) 97 07/19/17 15:00 98 07/19/17 14:00 86 07/19/17 13:00 86 07/19/17 11:45 95 07/19/17 11:45 98.0 95 18 89/62 (71) 95 07/19/17 11:00 94 07/19/17 10:00 96 Result Diagram: 07/18/17 1555 07/17/17 1700 (1) Hyperlipemia Plan: on statin (2) Hypothyroidism Plan: on Synthroid (3) Hypertension (4) Coronary artery disease Plan: ASA, hold BB HR 60 (5) ETOH abuse Plan: CIWA protocol dc (6) Laceration Plan: pilar to occipital area ancef x 3 doses TD dose Jessica Denise MD July 20, 2017 09:32
[2017-07-20] MEDS: ACETAMINOPHEN 325 MG TAB PO PRN (12:34)
[2017-07-20] MEDS ORDERED: LISINOPRIL 5 MG TAB PO ONE (12:45)
[2017-07-20] MEDS ORDERED: PILL SPLITTER OTHER PRN (12:45)
--- NOTE | 2017-07-20 14:07 | HHI.PR ---
Subjective Remarks Patient says he is feeling well. No complaints. Denies any chest pain shortness of breath. Denies nausea or vomiting. Objective Vital Signs Date Time Temp Pulse Resp B/P (MAP) Pulse Ox O2 Delivery O2 Flow Rate FiO2 07/20/17 14:03 87 07/20/17 13:35 91 142/81 (101) 07/20/17 13:32 92 153/82 (105) 07/20/17 13:31 90 146/72 (96) 07/20/17 13:30 90 141/62 (88) 07/20/17 13:00 93 07/20/17 12:00 77 07/20/17 11:15 97.6 77 18 153/76 (101) 98 07/20/17 11:00 68 07/20/17 10:00 65 07/20/17 09:00 66 07/20/17 08:00 75 07/20/17 07:15 98.1 62 18 119/61 (80) 94 07/20/17 07:00 53 07/20/17 06:00 66 07/20/17 04:00 84 07/20/17 03:00 47 07/20/17 03:00 97.9 63 18 113/57 (75) 94 07/20/17 02:00 96 07/20/17 01:00 98 07/20/17 00:00 84 07/19/17 23:00 98.4 70 18 111/65 (80) 93 07/19/17 23:00 73 07/19/17 22:25 22 07/19/17 19:00 68 07/19/17 19:00 98.7 70 18 110/68 (82) 97 07/19/17 18:00 96 07/19/17 17:00 84 07/19/17 16:46 80 07/19/17 16:46 97.5 80 16 103/61 (75) 97 07/19/17 15:00 98 I/O 07/19/17 07/19/17 07/19/17 07/20/17 07/20/17 07/20/17 07:00 15:00 23:00 07:00 15:00 23:00 Intake Total 240 ml 600 ml 400 ml Output Total 600 ml Balance 240 ml 0 ml 400 ml Intake Oral 240 ml 600 ml 400 ml Output Urine Total 600 ml # Voids 2 2 # Bowel Movements 1 0 0 Result Diagram: 07/18/17 1555 07/17/17 1700 Objective Remarks GENERAL: Patient sitting up in chair at bedside. Appears comfortable. No change on exam SKIN: Warm and dry. HEAD: Posterior head laceration without bleeding. No surrounding erythema. EYES: No scleral icterus. No injection or drainage. NECK: Supple, trachea midline. No JVD. CARDIOVASCULAR: Regular rate and rhythm without murmurs, gallops, or rubs. RESPIRATORY: Breath sounds equal bilaterally. No accessory muscle use. GASTROINTESTINAL: Abdomen soft, non-tender, nondistended. MUSCULOSKELETAL: No cyanosis, or edema. BACK: Nontender without obvious deformity. No CVA tenderness. A/P Assessment and Plan //Multivessel CAD = Echocardiogram recently with ejection fraction 60%, mild LVH, trivial valvular disease. = Continue medical management as per cardiothoracic surgery. = Patient will need CABG. Management as per cardiothoracic surgery. 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 = Likely secondary to hospital induced delirium overnight. Will proceed with syncopal workup to include bilateral carotid ultrasound, orthostatic vital signs. Patient had recent echocardiogram outside. Continue to monitor on telemetry. = 07/19. It does not appear that patient has clinically significant alcohol withdrawal. Will discontinue CIWA protocol. Patient feels that fall was secondary to his isosorbide dose which was given for the first time on 07/18 around 6 AM, with fall occurring around 7 AM. Blood pressure low today in the 90s. Will discontinue isosorbide. Continue to watch blood pressure. Orthostatic vital signs are still pending, reordered. = 07/20. Will start low-dose lisinopril. Orthostatics pending. Discussed with nursing. //Suspected alcohol withdrawal, acute CIWA protocol. LFTs unremarkable. Will check INR. = 07/19. Unlikely alcohol withdrawal. We will continue to monitor, but will discontinue CIWA protocol. //Suspected chronic dementia. //History of previous CVA with residual left-sided weakness -CT brain with senescent changes. = Patient appears to have a poor memory. Patient is alert and oriented 3 however. = B12 only in the 250s. Will start replacement. Patient appears to be alert and oriented 4. = Continue B12 replacement. //Vitamin B12 deficiency. B12 253. Will start replacement. //Thyroidism. TSH slightly elevated 4.8. Uncertain of compliance at home. Recommend recheck as outpatient in 1 month. //Hyperlipidemia. Continue statin. //GERD. Chronic. PPI. //Leukopenia. Likely secondary to lab error. Resolved. Discharge Planning We will continue to follow. Son Maldonado MD July 20, 2017 14:07
[2017-07-20] MEDS: ATORVASTATIN 40 MG TAB PO SCH (20:55)
[2017-07-21] VITALS (19 sets, daily range): BP systolic 107–149; BP diastolic 57–84; PULSE 55–92; RESP 16–18; TEMP 97.8–98.9; O2SAT 95–97
[2017-07-21] MEDS: LEVOTHYROXINE SODIUM 25 MCG TAB PO SCH (06:32)
[2017-07-21] MEDS: DOCUSATE SODIUM 50 MG/SENNA 8.6 MG TAB PO SCH ×2 (09:00→20:41)
[2017-07-21] MEDS: SODIUM CHLORIDE 0.9% FLUSH 10 ML FLUSH IV FLUSH SCH ×4 (09:00→20:41)
[2017-07-21] MEDS: FOLIC ACID 1 MG TAB PO SCH (09:03)
[2017-07-21] MEDS: THIAMINE HCL 100 MG TAB PO SCH (09:04)
[2017-07-21] MEDS: LISINOPRIL 5 MG TAB PO SCH (09:05)
[2017-07-21] MEDS: MULTIVITAMIN TAB PO SCH (09:06)
[2017-07-21] MEDS: ASPIRIN 81 MG CHEW TAB CHEW SCH (09:06)
[2017-07-21] MEDS: CYANOCOBALAMIN 1000 MCG/ML VIAL IM SCH (09:06)
--- NOTE | 2017-07-21 10:25 | PD.CAR.PN ---
CVT Progress Note Subjective/Hospital Course: A 72-year-old male transfer from [facility], had an abnormal EKG with a right bundle branch block and was told he had a probable prior AK that he was not aware of. Had a positive stress test which showed anterior septal ischemia. The patient underwent cardiac catheterization by Dr. Eladio Davis which showed proximal disease at the bifurcation of the first diagonal. There is approximately 80-90% lesions, heavily calcified. The LAD after the first septal branch is 99-100% occluded with [place] 1 flow. The LAD fills via collaterals from the diagonal vessel in the circumflex system. The left circumflex had severe stenosis in the mid segment with an 80-90% lesion noted, 2 obtuse marginals were noted afterwards. The right coronary artery is also diseased. There is approximately a 50% lesion and a mid 90% lesion. The PDA had evidence of small aneurysm with and without another 90% lesion noted. There were collaterals from the conus branch to a probable ramus vessel on the other side versus the LAD. There was some mild left subclavian stenosis of 10- 20% lesion in the vessel. The BRUNER was widely patent. Ejection fraction 60%. He did have an echocardiogram when he had his initial workup at Dr. Brandt's office, which showed an ejection fraction of 60-65%, mild LVH, trivial to mild mitral regurgitation, mild tricuspid regurgitation. Transferred for eval for CABG bypass grafting. 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 This was contributed to some type of ALLERGIC REACTION TO A TRICHOMONAS OUTBREAK at age 26, hyperlipidemia, gastroesophageal reflux disease, questionable prior AK, hypertension, hypothyroidism. Drinks 6- 8 shots of whisky per day 07/18 pt agitation last pm , nursing eval for CIWA protocol , given ativan got out of bed , unclothed fell hit his on door jam , sustained a 4cm length and 0.2cm deep area was irrigated with normal saline , cleansed with betadine and under sterile technique 5 pilar were placed to close wound wound is now closed and approximated ancef 1 gram q8 x 3 doses and TD dose IM given fall risk precautions, consult Hospitalist for medical management will now hold surgery until Saturday CT Brain: 1. Senescent changes with mild to moderate periventricular ischemic white matter demyelination. 2. No acute intracranial abnormality. 07/19 doing well, no complaints of agitation/ no tremors noted for surgery on 07/20 Doing well OR Friday 07/21 No complaints OR Saturday Objective: Vital Signs Date Time Temp Pulse Resp B/P (MAP) Pulse Ox O2 Delivery O2 Flow Rate FiO2 07/21/17 10:12 76 07/21/17 09:00 68 07/21/17 08:00 69 07/21/17 07:00 56 07/21/17 07:00 98.1 62 18 109/57 (74) 97 07/21/17 06:23 55 07/21/17 05:00 58 07/21/17 03:00 62 07/21/17 03:00 98.0 63 18 114/58 (76) 96 07/21/17 02:00 58 07/20/17 23:00 62 07/20/17 23:00 98.5 67 16 138/66 (90) 94 07/20/17 22:00 59 07/20/17 21:00 64 07/20/17 20:00 67 07/20/17 19:00 98.5 64 16 121/68 (85) 97 07/20/17 19:00 72 07/20/17 18:02 74 07/20/17 17:01 72 07/20/17 16:00 75 07/20/17 15:00 74 07/20/17 15:00 98.1 75 18 133/79 (97) 97 07/20/17 14:03 87 07/20/17 13:35 91 142/81 (101) 07/20/17 13:32 92 153/82 (105) 07/20/17 13:31 90 146/72 (96) 07/20/17 13:30 90 141/62 (88) 07/20/17 13:00 93 07/20/17 12:00 77 07/20/17 11:15 97.6 77 18 153/76 (101) 98 07/20/17 11:00 68 Result Diagram: 07/18/17 1555 07/17/17 1700 (1) Hyperlipemia Plan: on statin (2) Hypothyroidism Plan: on Synthroid (3) Hypertension (4) Coronary artery disease Plan: ASA, hold BB HR 60 (5) ETOH abuse Plan: CIWA protocol dc (6) Laceration Plan: pilar to occipital area ancef x 3 doses TD dose Jessica Denise MD July 21, 2017 10:24
--- NOTE | 2017-07-21 15:41 | HHI.PR ---
Subjective Remarks Patient again says he is feeling well. Denies any chest pain shortness of breath. Denies any nausea or vomiting. Denies any lightheadedness or dizziness. Had bowel movement yesterday. Objective Vital Signs Date Time Temp Pulse Resp B/P (MAP) Pulse Ox O2 Delivery O2 Flow Rate FiO2 07/21/17 15:00 98.1 72 18 113/57 (75) 95 07/21/17 14:00 89 07/21/17 13:00 67 07/21/17 12:00 70 07/21/17 11:20 97.8 70 18 107/61 (76) 97 07/21/17 11:00 64 07/21/17 10:12 76 07/21/17 09:00 68 07/21/17 08:00 69 07/21/17 07:00 56 07/21/17 07:00 98.1 62 18 109/57 (74) 97 07/21/17 06:23 55 07/21/17 05:00 58 07/21/17 03:00 62 07/21/17 03:00 98.0 63 18 114/58 (76) 96 07/21/17 02:00 58 07/20/17 23:00 62 07/20/17 23:00 98.5 67 16 138/66 (90) 94 07/20/17 22:00 59 07/20/17 21:00 64 07/20/17 20:00 67 07/20/17 19:00 98.5 64 16 121/68 (85) 97 07/20/17 19:00 72 07/20/17 18:02 74 07/20/17 17:01 72 07/20/17 16:00 75 I/O 07/20/17 07/20/17 07/20/17 07/21/17 07/21/17 07/21/17 07:00 15:00 23:00 07:00 15:00 23:00 Intake Total 400 ml 840 ml 240 ml Output Total 900 ml Balance 400 ml -60 ml 240 ml Intake Oral 400 ml 840 ml 240 ml Output Urine Total 900 ml # Voids 2 2 # Bowel Movements 0 2 Result Diagram: 07/18/17 5872 07/17/17 6260 Objective Remarks GENERAL: Patient sitting up in chair at bedside. Appears comfortable. Again, no change on exam. SKIN: Warm and dry. HEAD: Posterior head laceration without bleeding. No surrounding erythema. EYES: No scleral icterus. No injection or drainage. NECK: Supple, trachea midline. No JVD. CARDIOVASCULAR: Regular rate and rhythm without murmurs, gallops, or rubs. RESPIRATORY: Breath sounds equal bilaterally. No accessory muscle use. GASTROINTESTINAL: Abdomen soft, non-tender, nondistended. MUSCULOSKELETAL: No cyanosis, or edema. BACK: Nontender without obvious deformity. No CVA tenderness. A/P Assessment and Plan //Multivessel CAD = Echocardiogram recently with ejection fraction 60%, mild LVH, trivial valvular disease. = Continue medical management as per cardiothoracic surgery. = Patient will need CABG. Management as per cardiothoracic surgery. 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 = Likely secondary to hospital induced delirium overnight. Will proceed with syncopal workup to include bilateral carotid ultrasound, orthostatic vital signs. Patient had recent echocardiogram outside. Continue to monitor on telemetry. = 07/19. It does not appear that patient has clinically significant alcohol withdrawal. Will discontinue CIWA protocol. Patient feels that fall was secondary to his isosorbide dose which was given for the first time on 07/18 around 6 AM, with fall occurring around 7 AM. Blood pressure low today in the 90s. Will discontinue isosorbide. Continue to watch blood pressure. Orthostatic vital signs are still pending, reordered. = 07/20. Will start low-dose lisinopril. Orthostatics pending. Discussed with nursing. = 07/21. Still cannot see orthostatics in chart. Blood pressure acceptable. Continue very low-dose lisinopril. //Suspected alcohol withdrawal, acute CIWA protocol. LFTs unremarkable. Will check INR. = 07/19. Unlikely alcohol withdrawal. We will continue to monitor, but will discontinue CIWA protocol. //Suspected chronic dementia. //History of previous CVA with residual left-sided weakness -CT brain with senescent changes. = Patient appears to have a poor memory. Patient is alert and oriented 3 however. = B12 only in the 250s. Will start replacement. Patient appears to be alert and oriented 4. = Continue B12 replacement. //Vitamin B12 deficiency. B12 253. Will start replacement. //Thyroidism. TSH slightly elevated 4.8. Uncertain of compliance at home. Recommend recheck as outpatient in 1 month. //Hyperlipidemia. Continue statin. //GERD. Chronic. PPI. Discharge Planning We will continue to follow. Son Maldonado MD July 21, 2017 15:41
[2017-07-21] MEDS: ATORVASTATIN 40 MG TAB PO SCH (20:40)
[2017-07-21] MEDS ORDERED: POVIDONE IODINE 5% (ANTISEPSIS KIT) 4 APPLICATIONS EACH NARE PRN (22:15)
[2017-07-21] MEDS ORDERED: LACTATED RINGER'S 1000 ML IV PRN (22:15)
[2017-07-21] MEDS ORDERED: CHLORHEXIDINE GLUCONATE 2 % 1 PACK (2 CLOTHS) TOPICAL PRN (22:15)
[2017-07-21] MEDS ORDERED: SODIUM CHLORID 0.9% 500 ML IV PRN (22:15)
[2017-07-22] VITALS (13 sets, daily range): BP systolic 89–150; BP diastolic 51–78; PULSE 57–80; RESP 14–20; TEMP 95.2–98.6; O2SAT 92–98
[2017-07-22] MEDS: LEVOTHYROXINE SODIUM 25 MCG TAB PO SCH (05:26)
[2017-07-22] MEDS ORDERED: HEPARIN SODIUM - SQ 10,000 UNITS/ML VIAL ONE ×2 (06:50→08:33)
[2017-07-22] MEDS ORDERED: VANCOMYCIN HCL 1000 MG VIAL ONE (06:50)
[2017-07-22] MEDS ORDERED: ceFAZolin 2 GM PREMIX 50 ML ONE (06:50)
[2017-07-22] MEDS ORDERED: DEXMEDETOMIDINE HCL 200 MCG/2 ML VIAL ONE (07:07)
[2017-07-22] MEDS ORDERED: POTASSIUM CHLOR 40 MEQ PREMIX 100 ML ONE (08:33)
[2017-07-22] MEDS: FOLIC ACID 1 MG TAB PO SCH (09:00)
[2017-07-22] MEDS: MULTIVITAMIN TAB PO SCH (09:00)
[2017-07-22] MEDS: ASPIRIN 81 MG CHEW TAB CHEW SCH (09:00)
[2017-07-22] MEDS: CYANOCOBALAMIN 1000 MCG/ML VIAL IM SCH (09:00)
[2017-07-22] MEDS: THIAMINE HCL 100 MG TAB PO SCH (09:00)
[2017-07-22] MEDS: LISINOPRIL 5 MG TAB PO SCH (09:00)
[2017-07-22] MEDS: DOCUSATE SODIUM 50 MG/SENNA 8.6 MG TAB PO SCH ×2 (09:00→21:00)
[2017-07-22] MEDS: SODIUM CHLORIDE 0.9% FLUSH 10 ML FLUSH IV FLUSH SCH ×3 (09:00→20:37)
[2017-07-22] MEDS ORDERED: VECURONIUM BROMIDE 20 MG VIAL ONE (10:19)
[2017-07-22] MEDS ORDERED: SODIUM CHLORID 0.9% 500 ML INJ 500 ML IV ONE (12:00)
[2017-07-22] MEDS ORDERED: AMINOCAPROIC ACID INJ 250 MG/ML 20 ML VIAL IV ONE (12:00)
[2017-07-22] MEDS ORDERED: ePHEDrine/NS 25 MG/5 ML SYRINGE IV ONE (12:00)
[2017-07-22] MEDS ORDERED: ATROPINE SULFATE 1 MG/10 ML SYRINGE IV ONE (12:00)
[2017-07-22] MEDS ORDERED: DEXMEDETOMIDINE HCL 200 MCG/2 ML VIAL IV ONE (12:00)
[2017-07-22] MEDS ORDERED: GLYCOPYRROLATE 0.2 MG/ML VIAL IV ONE (12:00)
[2017-07-22] MEDS ORDERED: SODIUM BICARBONATE 8.4% INJ 50 MEQ/50 ML SYR IV ONE (12:00)
[2017-07-22] MEDS ORDERED: NORMOSOL R INJ 2,000 ML IV ONE (12:00)
[2017-07-22] MEDS ORDERED: PHENYLEPH/NS 1000 MCG/10 ML SYR IV ONE (12:00)
[2017-07-22] MEDS ORDERED: NITROGLYCERIN-D5W 50 MG/250 ML 250 ML IV ONE (12:00)
[2017-07-22] MEDS ORDERED: PROTAMINE SULFATE 50 MG/5 ML VIAL IV ONE (12:00)
[2017-07-22] MEDS ORDERED: HEPARIN SODIUM - SQ 10,000 UNITS/ML VIAL SQ ONE (12:00)
[2017-07-22] MEDS ORDERED: LACTATED RINGER'S 1000 ML INJ 2,000 ML IV ONE (12:00)
[2017-07-22] MEDS ORDERED: SODIUM CHLORIDE 0.9% INJ 100 ML IV ONE (12:00)
[2017-07-22] MEDS ORDERED: SODIUM CHLOR 0.9% 250 ML INJ 500 ML IV ONE (12:00)
[2017-07-22] MEDS ORDERED: NEOSTIGMINE METHYLSULFATE 10 MG/10 ML VIAL IV PUSH ONE (12:00)
[2017-07-22] MEDS ORDERED: MAGNESIUM SULFATE 1 GM/2 ML VIAL IV ONE (12:00)
[2017-07-22] MEDS ORDERED: CALCIUM CHLORIDE 10% SOLN 1 GRAM/10 ML SYR IV ONE (12:00)
[2017-07-22] MEDS ORDERED: VECURONIUM BROMIDE 10 MG VIAL IV ONE (12:00)
--- NOTE | 2017-07-22 12:02 | HHI.PR ---
Subjective Remarks Status post CABG today. When patient seen after procedure today he is doing well. Pain is controlled. He is able to converse A. No acute complaints. Hypotension is present after procedure. Dobutamine initially using will be transitioned to Paresh-Synephrine secondary to tachycardia. Blood pressures are now stabilized at 111 systolic when previously they were in the 80s systolic. Objective Vital Signs Date Time Temp Pulse Resp B/P (MAP) Pulse Ox O2 Delivery O2 Flow Rate FiO2 07/22/17 06:36 61 07/22/17 05:00 60 07/22/17 03:00 97.1 72 16 150/78 (102) 98 07/22/17 03:00 62 07/21/17 23:00 66 07/21/17 23:00 98.3 87 16 149/84 (105) 96 07/21/17 19:00 98.9 69 16 109/71 (84) 97 07/21/17 19:00 77 07/21/17 18:00 78 07/21/17 17:00 92 07/21/17 16:00 80 07/21/17 15:00 98.1 72 18 113/57 (75) 95 07/21/17 15:00 64 07/21/17 14:00 89 07/21/17 13:00 67 07/21/17 12:00 70 I/O 07/21/17 07/21/17 07/21/17 07/22/17 07/22/17 07/22/17 07:00 15:00 23:00 07:00 15:00 23:00 Intake Total 240 ml 920 ml 240 ml Output Total 750 ml Balance 240 ml 170 ml 240 ml Intake Oral 240 ml 920 ml 240 ml Output Urine Total 750 ml # Voids 2 3 # Bowel Movements 2 1 Result Diagram: 07/18/17 1555 Objective Remarks GENERAL: NAD, A&Ox3 HEAD: Normocephalic. NECK: Supple, trachea midline. No lymphadenopathy. EYES: No scleral icterus. No injection or drainage. CARDIOVASCULAR: Regular rate and rhythm without murmurs, gallops, or rubs. RESPIRATORY: Breath sounds equal bilaterally. No accessory muscle use. GASTROINTESTINAL: Abdomen soft, non-tender, nondistended. MUSCULOSKELETAL: No cyanosis, or edema. Chest tube is in place. Anterior sternal spacer/bandage present. SKIN: Warm and dry. NEURO: No focal neurological deficitis. A/P Problem List: (1) Coronary artery disease ICD Code: I25.10 - Atherosclerotic heart disease of [place] coronary artery without angina pectoris Assessment and Plan 72 year old male admitted with symptomatic CAD. Heart cath showed multi-vessel disease. CABG recommended. CAD status post CABG Cardiothoracic management post op Follow CBC, CMP PRN pain treatments Bedrest for now BP control with pressors as needed Follow oxygenation Monitor in ICU Preceeding weakness/falls PT post op HTN Follow BP and treat as needed for control [place] continued Dementia May be chronic Supportive care B12 Deficiency Replacement supplement in place Hypothyroidism Follow as an outpatient Hyperlipidemia Continue statin Follow as an outpatient GERD PPI DVT Prophylaxis SCDs Discharge Planning SNF likely needed when discharge appropriate Wing Hammond MD July 22, 2017 12:02
[2017-07-22] MEDS ORDERED: ceFAZolin INJ 1,000 MG VIAL ONE (12:30)
[2017-07-22] MEDS ORDERED: DOBUTamine PREMIX DRIP 250 ML IV PRN (12:38)
[2017-07-22] MEDS ORDERED: LACTATED RINGER'S 1000 ML INJ 500 ML IV PRN (12:38)
[2017-07-22] MEDS ORDERED: NITROGLYCERIN-D5W 50 MG/250 ML 250 ML IV PRN (12:45)
[2017-07-22] MEDS ORDERED: POTASSIUM CHLOR 20 MEQ PREMIX 100 ML IV PRN ×3 (12:45)
[2017-07-22] MEDS ORDERED: DOPamine 800 MG/500 ML INJ 500 ML IV PRN (12:45)
[2017-07-22] MEDS ORDERED: hydrALAZINE HCL 20 MG/ML VIAL IV PUSH PRN (12:45)
[2017-07-22] MEDS ORDERED: ACETAMINOPHEN 650 MG SUPP RECTAL PRN (12:45)
[2017-07-22] MEDS ORDERED: POTASSIUM CHLORIDE 20 MEQ CONTROLLED RELEASE TAB PO PRN ×2 (12:45)
[2017-07-22] MEDS ORDERED: Post-op Orders (for Pharmacy) OTHER ONE (12:45)
[2017-07-22] MEDS ORDERED: DEXMEDETOMIDINE INJ 200 MCG in SODIUM CHLORIDE 0.9% INJ 50 ML IV PRN (12:45)
[2017-07-22] MEDS ORDERED: MAGNESIUM SULFATE INJ 2 GM in SODIUM CHLORIDE 0.9% INJ 100 ML IV PRN ×4 (12:45)
[2017-07-22] MEDS ORDERED: MORPHINE SULFATE 4 MG/ML INJ IV PUSH PRN (12:45)
[2017-07-22] MEDS ORDERED: METOPROLOL TARTRATE 5 MG/5 ML VIAL IV PUSH PRN (12:45)
[2017-07-22] MEDS ORDERED: RESP: RACEPINEPHRINE 2.25% 0.5 ML NEB NEB PRN (12:45)
[2017-07-22] MEDS ORDERED: SODIUM CHLORIDE 0.9% FLUSH 10 ML FLUSH IV FLUSH PRN (12:45)
[2017-07-22] MEDS ORDERED: CALCIUM CHLORIDE 10% 1 GRAM/10 ML VIAL IV PUSH PRN (12:45)
[2017-07-22] MEDS ORDERED: SODIUM BICARBONATE 8.4% SOLN 50 MEQ/50 ML VIAL IV PUSH PRN ×2 (12:45)
[2017-07-22] MEDS ORDERED: RESP: ALBUTEROL 2.5 MG/IPRATROPIUM 0.5 MG NEB (PRN) NEB (12:45)
[2017-07-22] MEDS ORDERED: MEPERIDINE HCL 25 MG/ML VIAL IV PUSH PRN (12:45)
[2017-07-22] MEDS ORDERED: ACETAMINOPHEN 325 MG TAB PO PRN (12:45)
[2017-07-22] MEDS ORDERED: CLEVIDIPINE INJ 50 ML IV PRN (12:45)
[2017-07-22] MEDS ORDERED: DEXTROSE 50% IN WATER 50 ML VIAL(D50) IV PUSH PRN (12:45)
[2017-07-22] MEDS ORDERED: INSULIN REGULAR (IV INFUSION) 100 UNITS in SODIUM CHLORIDE 0.9% INJ 99 ML IV PRN (12:45)
--- NOTE | 2017-07-22 13:02 | PD.OP ---
cc: Jessica Denise MD Operative Report Date of Surgery: July 22, 2017 Preoperative Diagnosis: Postoperative Diagnosis: Procedure: 1. Urgent Clampless Off-pump Coronary Artery Bypass Grafting x 4 with Left Internal Mammary Artery (BRUNER) to Left Anterior Descending (LAD), reverse saphenous vein graft to the Diagonal 1 (D1) branch of the Left Anterior Descending Coronary Artery, reverse saphenous vein graft to the Obtuse Marginal 2 (OM2) branch of the Left Circumflex Coronary Artery, reverse saphenous vein graft to the Posterior Descending (RPDA) branch of the Right Coronary Artery 2. Right Leg Endoscopic Vein [place] 3. Intraoperative Vein Mapping. Surgeon: Jessica Denise Medicare Sales Representative(s): Arnol Jung Operation and Findings: PREPROCEDURE DIAGNOSES 1. Severe Multi Vessel Coronary Artery Disease. 2. Stable Angina 3. Alcohol Use POSTPROCEDURE DIAGNOSES 1. Severe Multi Vessel Coronary Artery Disease. 2. Heavily Calcified-Nearly Porcelain Ascending Aorta 3. Stable Angina 4. Alcohol Use SURGICAL PROCEDURE 1. Urgent Clampless Off-pump Coronary Artery Bypass Grafting x 4 with Left Internal Mammary Artery (BRUNER) to Left Anterior Descending (LAD), reverse saphenous vein graft to the Diagonal 1 (D1) branch of the Left Anterior Descending Coronary Artery, reverse saphenous vein graft to the Obtuse Marginal 2 (OM2) branch of the Left Circumflex Coronary Artery, reverse saphenous vein graft to the Posterior Descending (RPDA) branch of the Right Coronary Artery 2. Right Leg Endoscopic Vein [place] 3. Intraoperative Vein Mapping. SURGEON Jessica Denise MD MARKETING BUSINESS ANALYST MOUNIKA Shi ANESTHESIA General endotracheal LIGHT EQUIPMENT OPERATOR ARI Mcfadden MD PREPARATION ChloraPrep. COUNTS Needle, sponge, and instrument counts were correct. DRAINS Two 32-German mediastinal tubes. COMPLICATIONS None. INDICATIONS FOR PROCEDURE The patient is a 72-year-old presenting with chest pain and multi-vessel CAD. The patient is being brought to the operating room for surgical revascularization therapy. PROCEDURE Patient was brought to the operating room and placed supine on the OR table. Following the induction of adequate general endotracheal anesthesia and placement of appropriate monitoring devices, intraoperative vein mapping was performed which revealed suitable-caliber conduit in bilateral lower extremities. The patient was then prepped and draped in standard sterile fashion. Next, 2500 units of intravenous heparin was given. The right greater saphenous vein was harvested endoscopically. This appeared to be a useable- caliber conduit. Simultaneously, a median sternotomy was performed and the left internal mammary artery dissected free off the posterior sternal table. The patient was systemically heparinized and anticoagulation monitored by serial ACT measurements. The internal mammary artery had good pulsatile flow and was a good-caliber conduit. The pericardium was then divided in the midline, the cradle was created and targets analyzed. At this point, all anastomoses were performed in a beating-heart fashion using the Plycequet stabilizing system. The left internal mammary artery was anastomosed to the mid LAD (2 mm) in an end-to- side fashion using 7-0 Prolene. Segment of saphenous vein graft was then anastomosed to D1 (2 mm) in an end-to-side fashion using 7-0 Prolene. The next segment of saphenous vein graft was anastomosed to OM2 (2 mm) in an end-to-side fashion using 7-0 Prolene.The final segment of saphenous vein graft was anastomosed to RPDA (2 mm) in an end-to-side fashion using 7-0 Prolene. The ascending aorta was then examined and found to be nearly porcelain circumferentially. A small area of relatively spared aorta was identified and all the proximal anastomoses performed in a clampless fashion using the Heartstring device with running 6-0 Prolene. All anastomotic sites were inspected and appeared to be hemostatic and patent. Protamine solution was given. Strict hemostasis was assured. The closure was undertaken. 2 chest tubes were placed. The pericardium was reapproximated in the midline. The sternum was approximated using sternal wires. The muscular and fascial layer were then closed in 3 layers. The endoscopic vein harvest site was closed in 2 layers. The patient tolerated the procedure well and was transferred to CVICU in stable condition. Jessica Denise MD July 22, 2017 13:01
[2017-07-22] MEDS ORDERED: fentaNYL CITRATE 250 MCG/5 ML AMP ONE (13:28)
[2017-07-22] MEDS ORDERED: MIDAZOLAM HCL 2 MG/2 ML VIAL ONE ×2 (13:29)
[2017-07-22] MEDS ORDERED: ONDANSETRON ODT 4 MG TAB PO PRN (13:30)
[2017-07-22] MEDS: CALCIUM CHLORIDE INJ 1 GM in SODIUM CHLORIDE 0.9% INJ 100 ML IV PRN ×2 (13:40→20:36)
[2017-07-22] MEDS: ALBUMIN 5% INJ 250 ML IV PRN ×2 (13:40→16:35)
[2017-07-22] MEDS: ACETAMINOPHEN 1000 MG/100 ML 100 ML IV SCH ×2 (13:41→20:36)
--- NOTE | 2017-07-22 14:37 | RADRPT ---
EXAM DATE: 07/22/2017 2:30 PM EDT AGE/SEX: 72 years / Male INDICATIONS: Post CABG. CLINICAL DATA: This is the patient's initial encounter. Patient reports that signs and symptoms have been present for 1 day and indicates a pain score of Nonresponsive. MEDICAL/SURGICAL HISTORY: . Hypertension. Cerebrovascular disease. . Appendectomy. COMPARISON: No prior [facility] exams available for comparison. FINDINGS: A single AP view of the chest demonstrates recent CABG. Mediastinal and left-sided chest tube without pneumothorax. Endotracheal tube tip approximately 2.5 cm above the collins. Nasogastric tube with tip coiled in what appears to be the left main bronchus. Minimal bibasilar atelectasis. Osseous structu res are intact. CONCLUSION: 1. Status post CABG. 2. The nasogastric tube is seen with tip coiled in the main stem bronchus. This should be reposition ed. 3. Minimal bibasilar atelectasis. Electronically signed by: Jamison Benson MD 07/22/2017 2:36 PM EDT
[2017-07-22] MEDS: RESP: ALBUTEROL 2.5 MG/IPRATROPIUM 0.5 MG NEB (SCH) NEB ×2 (15:35→21:09)
[2017-07-22] MEDS: KETOROLAC TROMETHAMINE 30 MG/ML (IVP) VIAL IV PUSH PRN (16:00)
[2017-07-22] MEDS ORDERED: DOBUTamine INJ 250 MG in DEXTROSE 5% IN WATER INJ 230 ML IV PRN ×2 (16:30)
[2017-07-22] MEDS: PHENYLEPHRINE INJ 40 MG in DEXTROSE 5% IN WATE 500 ML INJ 496 ML IV PRN ×2 (17:48)
[2017-07-22] MEDS: AMIODARONE 200 MG TAB PO SCH (20:36)
[2017-07-22] MEDS: ceFAZolin 2 GM PREMIX 50 ML IV SCH (20:36)
[2017-07-22] MEDS: ATORVASTATIN 40 MG TAB PO SCH (20:37)
[2017-07-22] MEDS: ACETAMINOPHEN/HYDROcodone 325 MG/5 MG TAB PO PRN (23:13)
[2017-07-23] VITALS (11 sets, daily range): BP systolic 95–128; BP diastolic 51–73; PULSE 62–108; RESP 16–20; TEMP 98.6–99; O2SAT 93–97
[2017-07-23] MEDS: KETOROLAC TROMETHAMINE 30 MG/ML (IVP) VIAL IV PUSH PRN ×4 (01:15→22:00)
[2017-07-23] MEDS: ACETAMINOPHEN 1000 MG/100 ML 100 ML IV SCH ×4 (01:15→21:00)
[2017-07-23] MEDS: RESP: ALBUTEROL 2.5 MG/IPRATROPIUM 0.5 MG NEB (SCH) NEB ×4 (03:08→21:07)
[2017-07-23 04:16] LABS: BASOPHIL % 0.6 % (0.0-2.0); EOSINOPHIL % 0.1 % (0.0-4.0); HEMATOCRIT 36.2 % (39.0-51.0); HEMOGLOBIN 12.4 GM/DL (13.0-17.0); LYMPHOCYTE # 0.6 TH/MM3 (1.0-4.8); MEAN CELL VOLUME 97.8 FL (80.0-100.0); MEAN CORPUSCULAR HEMOGLOBIN 33.5 PG (27.0-34.0); MEAN CORPUSCULAR HGB CONC 34.3 % (32.0-36.0); MEAN PLATELET VOLUME 8.5 FL (7.0-11.0); MONO % 9.8 % (0.0-8.0); MONOCYTE # 0.6 TH/MM3 (0-0.9); NEUT % 80.5 % (16.0-70.0); PLATELET COUNT 212 TH/MM3 (150-450); RED CELL DISTRIBUTION WIDTH 14.8 % (11.6-17.2); WHITE BLOOD COUNT 6.2 TH/MM3 (4.0-11.0)
[2017-07-23 04:29] LABS: ALBUMIN 2.9 GM/DL (3.4-5.0); AST (GOT) 19 U/L (15-37); BICARBONATE 21.2 MEQ/L (21.0-32.0); BLOOD UREA NITROGEN 13 MG/DL (7-18); CALCIUM 8.2 MG/DL (8.5-10.1); CHLORIDE 107 MEQ/L (98-107); CREATININE 0.83 MG/DL (0.60-1.30); GLOMERULAR FILTRATION RATE 91 ML/MIN (>89); GLUCOSE,RANDOM 111 MG/DL (74-106); SODIUM (NA) 139 MEQ/L (136-145)
[2017-07-23 04:33] LABS: ALKALINE PHOSPHATASE 50 U/L (45-117); ALT (GPT) 16 U/L (12-78); TOTAL BILIRUBIN ADULT 0.7 MG/DL (0.2-1.0); TOTAL PROTEIN 5.4 GM/DL (6.4-8.2)
[2017-07-23] MEDS: ceFAZolin 2 GM PREMIX 50 ML IV SCH ×3 (04:49→20:00)
--- NOTE | 2017-07-23 05:03 | RADRPT ---
EXAM DATE: 07/23/2017 4:59 AM EDT AGE/SEX: 72 years / Male INDICATIONS: Short of breath. CLINICAL DATA: This is the patient's subsequent encounter. Patient reports that signs and symptoms h ave been present for 3 days and indicates a pain score of 0/10. MEDICAL/SURGICAL HISTORY: None. CABG. COMPARISON: [facility] [place], CHEST SINGLE AP, 07/22/2017. . FINDINGS: There are degenerative changes in both shoulders chronic in nature and not adequately characterized b y this technique. No definite pneumothorax is seen for technique. ET tube and NG tube have been rem lelia. Bilateral perihilar atelectasis present with some degree of consolidation left lung base. CONCLUSION: Slight perihilar atelectasis is seen bilaterally with mild consolidation left lung base. Electronically signed by: Ramírez Zhang MD 07/23/2017 5:02 AM EDT
[2017-07-23] MEDS: LEVOTHYROXINE SODIUM 25 MCG TAB PO SCH (06:13)
[2017-07-23] MEDS: PANTOPRAZOLE SOD 40 MG DELAYED RELEASE TAB PO SCH (06:13)
[2017-07-23] MEDS: MULTIVITAMIN TAB PO SCH (08:41)
[2017-07-23] MEDS: CLOPIDOGREL 75 MG TAB PO SCH (08:41)
[2017-07-23] MEDS: FOLIC ACID 1 MG TAB PO SCH (08:42)
[2017-07-23] MEDS: THIAMINE HCL 100 MG TAB PO SCH (08:42)
[2017-07-23] MEDS: ASPIRIN 81 MG CHEW TAB PO SCH (08:42)
[2017-07-23] MEDS: SODIUM CHLORIDE 0.9% FLUSH 10 ML FLUSH IV FLUSH SCH ×2 (08:42→21:00)
[2017-07-23] MEDS: AMIODARONE 200 MG TAB PO SCH ×2 (09:00→21:00)
[2017-07-23] MEDS: DOCUSATE SODIUM 50 MG/SENNA 8.6 MG TAB PO SCH (09:00)
--- NOTE | 2017-07-23 09:19 | HHI.PR ---
Subjective Remarks Status post CABG yesterday. Pain is controlled. Primary complaint is lack of sleep last night. Patient is out of bed in chair today. Objective Vital Signs Date Time Temp Pulse Resp B/P (MAP) Pulse Ox O2 Delivery O2 Flow Rate FiO2 07/23/17 08:34 94 Nasal Cannula 4.00 07/23/17 07:42 97 Nasal Cannula 3.00 07/23/17 07:42 80 07/23/17 07:39 98.9 71 20 117/68 (84) 97 124/62 (82) 07/23/17 03:00 97 Nasal Cannula 3.00 07/23/17 03:00 99.0 62 20 105/66 (79) 97 105/54 (71) 07/23/17 03:00 62 07/23/17 02:15 20 07/23/17 02:15 20 07/23/17 00:13 20 07/22/17 23:10 98.6 07/22/17 23:00 98.3 80 20 96/60 (72) 96 101/51 (68) 07/22/17 23:00 80 07/22/17 23:00 96 Nasal Cannula 3.00 07/22/17 20:40 98 Nasal Cannula 3.00 07/22/17 19:00 98 Nasal Cannula 3.00 07/22/17 19:00 98.4 74 20 126/78 (94) 98 124/66 (85) 07/22/17 19:00 74 07/22/17 17:48 112 81/45 07/22/17 15:36 96 Nasal Cannula 4 07/22/17 15:36 96 Nasal Cannula 4.00 07/22/17 15:23 50 07/22/17 15:00 97.7 59 16 89/62 (71) 98 101/55 (70) 07/22/17 15:00 59 07/22/17 15:00 98 Nasal Cannula 4.00 07/22/17 14:00 57 07/22/17 13:15 93 50 07/22/17 13:10 95 50 07/22/17 13:09 57 07/22/17 13:09 50 07/22/17 13:09 95.2 57 14 92/71 (78) 92 96/52 (67) 07/22/17 13:09 92 Mechanical Ventilator 50 I/O 07/22/17 07/22/17 07/22/17 07/23/17 07/23/17 07/23/17 07:00 15:00 23:00 07:00 15:00 23:00 Intake Total 240 ml 4365 ml 2569 ml 1540 ml Output Total 1200 ml 425 ml 615 ml Balance 240 ml 3165 ml 2144 ml 925 ml Intake Oral 240 ml 120 ml IV Total 565 ml 569 ml 1420 ml Other 3800 ml 2000 ml Output Urine Total 200 ml 280 ml 405 ml Gastric Drainage Total 25 ml Chest Tube Drainage Total 120 ml 210 ml Estimated Blood Loss 1000 ml # Voids 3 # Bowel Movements 1 0 Result Diagram: 07/23/1733907/23/17339 Objective Remarks GENERAL: NAD, A&Ox3 HEAD: Normocephalic. NECK: Supple, trachea midline. No lymphadenopathy. EYES: No scleral icterus. No injection or drainage. CARDIOVASCULAR: Regular rate and rhythm without murmurs, gallops, or rubs. RESPIRATORY: Breath sounds equal bilaterally. No accessory muscle use. GASTROINTESTINAL: Abdomen soft, non-tender, nondistended. MUSCULOSKELETAL: No cyanosis, or edema. Chest tube is in place. Anterior sternal spacer/bandage present. SKIN: Warm and dry. NEURO: No focal neurological deficitis. A/P Problem List: (1) Coronary artery disease ICD Code: I25.10 - Atherosclerotic heart disease of [place] coronary artery without angina pectoris Assessment and Plan 72 year old male admitted with symptomatic CAD. Heart cath showed multi-vessel disease. CABG recommended. Status post CABG on 07/22/2017. Patient is doing well but had poor sleep. Blood pressures remain low and pressors are needed to maintain blood pressures. Sedatives are not an option for him right now. CAD status post CABG Cardiothoracic management post op Follow CBC, CMP PRN pain treatments Bedrest for now BP control with pressors as needed Follow oxygenation Monitor in ICU Preceeding weakness/falls PT post op HTN Follow BP and treat as needed for control Andrearium Tremens JOSHUA lovelaceall continued Dementia May be chronic Supportive care B12 Deficiency Replacement supplement in place Hypothyroidism Follow as an outpatient Hyperlipidemia Continue statin Follow as an outpatient GERD PPI DVT Prophylaxis SCDs Discharge Planning SNF likely needed when discharge appropriate Wing Hammond MD July 23, 2017 09:19
[2017-07-23] MEDS ORDERED: diphenhydrAMINE HCL 50 MG/ML VIAL IV PUSH PRN ×2 (09:30)
--- NOTE | 2017-07-23 09:31 | RSPPFT ---
DATE OF PROCEDURE: 07/19/17 COMMENTS: Spirometry shows FVC of 3.5 at 85% of predicted, FEV1 of 2.6 at 81%, FEV1/FVC ratio is normal. Flow is normal at FEF 25, FEF 50 and FEF 25-75. Flow volume loop indicates a normal pattern. IMPRESSION: 1. Normal spirometry. 2. Post-bronchodilator study was not done.
[2017-07-23] MEDS ORDERED: ALBUMIN 5% INJ 250 ML IV ONE (10:15)
[2017-07-23] MEDS ORDERED: DEXTROSE 50% IN WATER 50 ML VIAL(D50) IV PUSH PRN (10:30)
[2017-07-23] MEDS ORDERED: BISACODYL 10 MG SUPP RECTAL PRN (10:30)
[2017-07-23] MEDS ORDERED: GLUCAGON 1 MG/ML VIAL OTHER PRN (10:30)
[2017-07-23] MEDS: METOCLOPRAMIDE HCL 10 MG/2 ML VIAL IV PUSH SCH ×2 (12:00→17:51)
[2017-07-23] MEDS: INSULIN ASPART SUPPLEMENTAL SCALE SQ SCH ×3 (14:00→22:00)
--- NOTE | 2017-07-23 14:04 | EKG ---
Date Performed: 07/23/2017 Time Performed: 02:22:52 PTAGE: 72 years EKG: Sinus rhythm Left axis deviation RBBB with left anterior fascicular block Inferior infarct - age undetermined Low QRS voltages in precordial leads Abnormal ECG NO PREVIOUS TRACING DOCTOR: Jamin Sheets Interpretating Date/Time 07/26/2017 08:15:52
[2017-07-23] MEDS: PHENYLEPHRINE INJ 40 MG in DEXTROSE 5% IN WATE 500 ML INJ 496 ML IV PRN ×2 (15:00)
--- NOTE | 2017-07-23 15:24 | PD.CAR.PN ---
CVT Progress Note Subjective/Hospital Course: A 72-year-old male transfer from [facility], had an abnormal EKG with a right bundle branch block and was told he had a probable prior [place] that he was not aware of. Had a positive stress test which showed anterior septal ischemia. The patient underwent cardiac catheterization by Dr. Eladio Davis which showed proximal disease at the bifurcation of the first diagonal. There is approximately 80-90% lesions, heavily calcified. The LAD after the first septal branch is 99-100% occluded with [place] 1 flow. The LAD fills via collaterals from the diagonal vessel in the circumflex system. The left circumflex had severe stenosis in the mid segment with an 80-90% lesion noted, 2 obtuse marginals were noted afterwards. The right coronary artery is also diseased. There is approximately a 50% lesion and a mid 90% lesion. The PDA had evidence of small aneurysm with and without another 90% lesion noted. There were collaterals from the conus branch to a probable ramus vessel on the other side versus the LAD. There was some mild left subclavian stenosis of 10- 20% lesion in the vessel. The BRUNER was widely patent. Ejection fraction 60%. He did have an echocardiogram when he had his initial workup at Dr. Brandt's office, which showed an ejection fraction of 60-65%, mild LVH, trivial to mild mitral regurgitation, mild tricuspid regurgitation. Transferred for eval for CABG bypass grafting. 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 This was contributed to some type of ALLERGIC REACTION TO A TRICHOMONAS OUTBREAK at age 26, hyperlipidemia, gastroesophageal reflux disease, questionable prior [place], hypertension, hypothyroidism. Drinks 6- 8 shots of whisky per day 07/18 pt agitation last pm , nursing eval for CIWA protocol , given ativan got out of bed , unclothed fell hit his on door jam , sustained a 4cm length and 0.2cm deep area was irrigated with normal saline , cleansed with betadine and under sterile technique 5 pilar were placed to close wound wound is now closed and approximated ancef 1 gram q8 x 3 doses and TD dose IM given fall risk precautions, consult Hospitalist for medical management will now hold surgery until Saturday CT Brain: 1. Senescent changes with mild to moderate periventricular ischemic white matter demyelination. 2. No acute intracranial abnormality. 07/19 doing well, no complaints of agitation/ no tremors noted for surgery on 07/20 Doing well OR Friday 07/21 No complaints OR 07/22 surgery: 1. Urgent Clampless Off-pump Coronary Artery Bypass Grafting x 4 with Left Internal Mammary Artery (BRUNER) to Left Anterior Descending (LAD), reverse saphenous vein graft to the Diagonal 1 (D1) branch of the Left Anterior Descending Coronary Artery, reverse saphenous vein graft to the Obtuse Marginal 2 (OM2) branch of the Left Circumflex Coronary Artery, reverse saphenous vein graft to the Posterior Descending (RPDA) branch of the Right Coronary Artery 2. Right Leg Endoscopic Vein [place] 3. Intraoperative Vein Mapping. extubated after surgery crystalloid 3800cc, cell saver 600cc, EBL 1000cc 07/23 remains on low dose Paresh gtt given crystalloid last pm and colloid this am CVP 8-10 on nasal cannula , pain controlled up in chair plan is to wean Paresh as tolerated/ remain in CVICU for now Objective: GENERAL: A&O x 3 SKIN: Warm and dry. prevena dressing to chest , lawson wrap right leg HEAD: Normocephalic. EYES: No scleral icterus. No injection or drainage. NECK: Supple, trachea midline. No JVD or lymphadenopathy. CARDIOVASCULAR: Regular rate and rhythm without murmurs, gallops, or rubs. RESPIRATORY: Breath sounds equal bilaterally. No accessory muscle use. diminished in bases, chest tube to wall suction/ drained 210cc/ 12 hrs GASTROINTESTINAL: Abdomen soft, non-tender, nondistended. MUSCULOSKELETAL: No cyanosis, or edema. BACK: Nontender without obvious deformity. No CVA tenderness. Vital Signs Date Time Temp Pulse Resp B/P (MAP) Pulse Ox O2 Delivery O2 Flow Rate FiO2 07/23/17 11:31 74 07/23/17 11:28 97 Nasal Cannula 3.00 07/23/17 11:25 98.7 76 18 117/71 (86) 119/60 (79) 07/23/17 11:24 98.7 76 18 117/71 (86) 97 119/60 (79) 07/23/17 08:34 94 Nasal Cannula 4.00 07/23/17 07:42 97 Nasal Cannula 3.00 07/23/17 07:42 80 07/23/17 07:39 98.9 71 20 117/68 (84) 97 124/62 (82) 07/23/17 03:00 97 Nasal Cannula 3.00 07/23/17 03:00 99.0 62 20 105/66 (79) 97 105/54 (71) 07/23/17 03:00 62 07/23/17 02:15 20 07/23/17 02:15 20 07/23/17 00:13 20 07/22/17 23:10 98.6 07/22/17 23:00 98.3 80 20 96/60 (72) 96 101/51 (68) 07/22/17 23:00 80 07/22/17 23:00 96 Nasal Cannula 3.00 07/22/17 20:40 98 Nasal Cannula 3.00 07/22/17 19:00 98 Nasal Cannula 3.00 07/22/17 19:00 98.4 74 20 126/78 (94) 98 124/66 (85) 07/22/17 19:00 74 07/22/17 17:48 112 81/45 07/22/17 15:36 96 Nasal Cannula 4 07/22/17 15:36 96 Nasal Cannula 4.00 07/22/17 15:23 50 Labs: Laboratory Tests Test 07/23/17 03:40 White Blood Count 6.2 TH/MM3 (4.0-11.0) Red Blood Count 3.70 MIL/MM3 (4.50-5.90) Hemoglobin 12.4 GM/DL (13.0-17.0) Hematocrit 36.2 % (39.0-51.0) Mean Corpuscular Volume 97.8 FL (80.0-100.0) Mean Corpuscular Hemoglobin 33.5 PG (27.0-34.0) Mean Corpuscular Hemoglobin Concent 34.3 % (32.0-36.0) Red Cell Distribution Width 14.8 % (11.6-17.2) Platelet Count 212 TH/MM3 (150-450) Mean Platelet Volume 8.5 FL (7.0-11.0) Neutrophils (%) (Auto) 80.5 % (16.0-70.0) Lymphocytes (%) (Auto) 9.0 % (9.0-44.0) Monocytes (%) (Auto) 9.8 % (0.0-8.0) Eosinophils (%) (Auto) 0.1 % (0.0-4.0) Basophils (%) (Auto) 0.6 % (0.0-2.0) Neutrophils # (Auto) 5.0 TH/MM3 (1.8-7.7) Lymphocytes # (Auto) 0.6 TH/MM3 (1.0-4.8) Monocytes # (Auto) 0.6 TH/MM3 (0-0.9) Eosinophils # (Auto) 0.0 TH/MM3 (0-0.4) Basophils # (Auto) 0.0 TH/MM3 (0-0.2) CBC Comment DIFF FINAL Differential Comment Blood Urea Nitrogen 13 MG/DL (7-18) Creatinine 0.83 MG/DL (0.60-1.30) Random Glucose 111 MG/DL (74-106) Total Protein 5.4 GM/DL (6.4-8.2) Albumin 2.9 GM/DL (3.4-5.0) Calcium Level 8.2 MG/DL (8.5-10.1) Magnesium Level 2.0 MG/DL (1.5-2.5) Alkaline Phosphatase 50 U/L (45-117) Aspartate Amino Transf (AST/SGOT) 19 U/L (15-37) Alanine Aminotransferase (ALT/SGPT) 16 U/L (12-78) Total Bilirubin 0.7 MG/DL (0.2-1.0) Sodium Level 139 MEQ/L (136-145) Potassium Level 4.1 MEQ/L (3.5-5.1) Chloride Level 107 MEQ/L (98-107) Carbon Dioxide Level 21.2 MEQ/L (21.0-32.0) Anion Gap 11 MEQ/L (5-15) Estimat Glomerular Filtration Rate 91 ML/MIN (>89) Result Diagram: 07/23/17 0340 07/23/17 0340 Telemetry: NSR (1) S/P CABG x 4 Plan: ASA, statin , hold on starting BB 2/2 labile BP pulm toileting OOB / PT as tolerated CM eval for HHC at discharge (2) Hyperlipemia Plan: on statin (3) Hypothyroidism Plan: on Synthroid (4) Hypertension Plan: BP labile (5) Coronary artery disease Plan: ASA, hold BB HR 60 (6) ETOH abuse Plan: CIWA protocol dc (7) Laceration Plan: pilar to occipital area ancef x 3 doses TD dose leave pilar in total 10 days to be removed 07/28 Fariba Medina July 23, 2017 15:24
--- NOTE | 2017-07-23 15:27 | PD.CAR.PN ---
CVT Progress Note Subjective/Hospital Course: A 72-year-old male transfer from [facility], had an abnormal EKG with a right bundle branch block and was told he had a probable prior [place] that he was not aware of. Had a positive stress test which showed anterior septal ischemia. The patient underwent cardiac catheterization by Dr. Eladio Davis which showed proximal disease at the bifurcation of the first diagonal. There is approximately 80-90% lesions, heavily calcified. The LAD after the first septal branch is 99-100% occluded with [place] 1 flow. The LAD fills via collaterals from the diagonal vessel in the circumflex system. The left circumflex had severe stenosis in the mid segment with an 80-90% lesion noted, 2 obtuse marginals were noted afterwards. The right coronary artery is also diseased. There is approximately a 50% lesion and a mid 90% lesion. The PDA had evidence of small aneurysm with and without another 90% lesion noted. There were collaterals from the conus branch to a probable ramus vessel on the other side versus the LAD. There was some mild left subclavian stenosis of 10- 20% lesion in the vessel. The BRUNER was widely patent. Ejection fraction 60%. He did have an echocardiogram when he had his initial workup at Dr. Brandt's office, which showed an ejection fraction of 60-65%, mild LVH, trivial to mild mitral regurgitation, mild tricuspid regurgitation. Transferred for eval for CABG bypass grafting. 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 This was contributed to some type of ALLERGIC REACTION TO A TRICHOMONAS OUTBREAK at age 26, hyperlipidemia, gastroesophageal reflux disease, questionable prior [place], hypertension, hypothyroidism. Drinks 6- 8 shots of whisky per day 07/18 pt agitation last pm , nursing eval for CIWA protocol , given ativan got out of bed , unclothed fell hit his on door jam , sustained a 4cm length and 0.2cm deep area was irrigated with normal saline , cleansed with betadine and under sterile technique 5 pilar were placed to close wound wound is now closed and approximated ancef 1 gram q8 x 3 doses and TD dose IM given fall risk precautions, consult Hospitalist for medical management will now hold surgery until Saturday CT Brain: 1. Senescent changes with mild to moderate periventricular ischemic white matter demyelination. 2. No acute intracranial abnormality. 07/19 doing well, no complaints of agitation/ no tremors noted for surgery on 07/20 Doing well OR Friday 07/21 No complaints OR 07/22 surgery: 1. Urgent Clampless Off-pump Coronary Artery Bypass Grafting x 4 with Left Internal Mammary Artery (BRUNER) to Left Anterior Descending (LAD), reverse saphenous vein graft to the Diagonal 1 (D1) branch of the Left Anterior Descending Coronary Artery, reverse saphenous vein graft to the Obtuse Marginal 2 (OM2) branch of the Left Circumflex Coronary Artery, reverse saphenous vein graft to the Posterior Descending (RPDA) branch of the Right Coronary Artery 2. Right Leg Endoscopic Vein [place] 3. Intraoperative Vein Mapping. extubated after surgery crystalloid 3800cc, cell saver 600cc, EBL 1000cc 07/23 remains on low dose Paresh gtt given crystalloid last pm and colloid this am CVP 8-10 on nasal cannula , pain controlled up in chair plan is to wean Paresh as tolerated/ remain in CVICU for now Objective: Vital Signs Date Time Temp Pulse Resp B/P (MAP) Pulse Ox O2 Delivery O2 Flow Rate FiO2 07/23/17 11:31 74 07/23/17 11:28 97 Nasal Cannula 3.00 07/23/17 11:25 98.7 76 18 117/71 (86) 119/60 (79) 07/23/17 11:24 98.7 76 18 117/71 (86) 97 119/60 (79) 07/23/17 08:34 94 Nasal Cannula 4.00 07/23/17 07:42 97 Nasal Cannula 3.00 07/23/17 07:42 80 07/23/17 07:39 98.9 71 20 117/68 (84) 97 124/62 (82) 07/23/17 03:00 97 Nasal Cannula 3.00 07/23/17 03:00 99.0 62 20 105/66 (79) 97 105/54 (71) 07/23/17 03:00 62 07/23/17 02:15 20 07/23/17 02:15 20 07/23/17 00:13 20 07/22/17 23:10 98.6 07/22/17 23:00 98.3 80 20 96/60 (72) 96 101/51 (68) 07/22/17 23:00 80 07/22/17 23:00 96 Nasal Cannula 3.00 07/22/17 20:40 98 Nasal Cannula 3.00 07/22/17 19:00 98 Nasal Cannula 3.00 07/22/17 19:00 98.4 74 20 126/78 (94) 98 124/66 (85) 07/22/17 19:00 74 07/22/17 17:48 112 81/45 07/22/17 15:36 96 Nasal Cannula 4 07/22/17 15:36 96 Nasal Cannula 4.00 Labs: Laboratory Tests Test 07/23/17 03:40 White Blood Count 6.2 TH/MM3 (4.0-11.0) Red Blood Count 3.70 MIL/MM3 (4.50-5.90) Hemoglobin 12.4 GM/DL (13.0-17.0) Hematocrit 36.2 % (39.0-51.0) Mean Corpuscular Volume 97.8 FL (80.0-100.0) Mean Corpuscular Hemoglobin 33.5 PG (27.0-34.0) Mean Corpuscular Hemoglobin Concent 34.3 % (32.0-36.0) Red Cell Distribution Width 14.8 % (11.6-17.2) Platelet Count 212 TH/MM3 (150-450) Mean Platelet Volume 8.5 FL (7.0-11.0) Neutrophils (%) (Auto) 80.5 % (16.0-70.0) Lymphocytes (%) (Auto) 9.0 % (9.0-44.0) Monocytes (%) (Auto) 9.8 % (0.0-8.0) Eosinophils (%) (Auto) 0.1 % (0.0-4.0) Basophils (%) (Auto) 0.6 % (0.0-2.0) Neutrophils # (Auto) 5.0 TH/MM3 (1.8-7.7) Lymphocytes # (Auto) 0.6 TH/MM3 (1.0-4.8) Monocytes # (Auto) 0.6 TH/MM3 (0-0.9) Eosinophils # (Auto) 0.0 TH/MM3 (0-0.4) Basophils # (Auto) 0.0 TH/MM3 (0-0.2) CBC Comment DIFF FINAL Differential Comment Blood Urea Nitrogen 13 MG/DL (7-18) Creatinine 0.83 MG/DL (0.60-1.30) Random Glucose 111 MG/DL (74-106) Total Protein 5.4 GM/DL (6.4-8.2) Albumin 2.9 GM/DL (3.4-5.0) Calcium Level 8.2 MG/DL (8.5-10.1) Magnesium Level 2.0 MG/DL (1.5-2.5) Alkaline Phosphatase 50 U/L (45-117) Aspartate Amino Transf (AST/SGOT) 19 U/L (15-37) Alanine Aminotransferase (ALT/SGPT) 16 U/L (12-78) Total Bilirubin 0.7 MG/DL (0.2-1.0) Sodium Level 139 MEQ/L (136-145) Potassium Level 4.1 MEQ/L (3.5-5.1) Chloride Level 107 MEQ/L (98-107) Carbon Dioxide Level 21.2 MEQ/L (21.0-32.0) Anion Gap 11 MEQ/L (5-15) Estimat Glomerular Filtration Rate 91 ML/MIN (>89) Result Diagram: 07/23/17 0340 07/23/17 0340 (1) S/P CABG x 4 Plan: ASA, statin , hold on starting BB 2/2 labile BP pulm toileting OOB / PT as tolerated CM eval for HHC at discharge (2) Hyperlipemia Plan: on statin (3) Hypothyroidism Plan: on Synthroid (4) Hypertension Plan: BP labile (5) Coronary artery disease Plan: ASA, hold BB HR 60 (6) ETOH abuse Plan: CIWA protocol dc (7) Laceration Plan: pilar to occipital area ancef x 3 doses TD dose leave pilar in total 10 days to be removed /3 Fariba Medina July 23, 2017 15:27
--- NOTE | 2017-07-23 15:30 | HHI.FF ---
Face to Face Verification Diagnosis: (1) Hyperlipemia (2) Hypothyroidism (3) Hypertension (4) Laceration (5) Coronary artery disease (6) S/P CABG x 4 (7) ETOH abuse Home Health Nursing Order: Medication education-adverse effect Wound care and dressing changes Nursing assessment with vital signs Instructions: Heart and Vascular Surgery patients *Special attention to sternal dressing Mandatory frequency Assess and evaluation, 4 days in a row The next week 3X week 2 times a week for 4 weeks 1 time a week for 5 weeks Schedule Heart and Vascular patients for full 60 day certification period Initial visit Review Open Heart Surgery Discharge Instructions (Sternal precautions, Activity, Elastic hose, Incision care, Driving, Incentive spirometry, Smoking, [place], Work and other) Need Betadine to paint incision Medication reconciliation Importance of follow up care/ check on appointments Make calendar record temperature daily When to call [facility] nurse, review instructions, phone list Incentive Spirometry, demonstration Visit 1- Begin discharge instruction for patient family and/ or caregiver using teach back method- Signs and symptoms of infection Disease characteristics Medicines and side effects Foods and nutrition/ appetite Infection control/ hand washing/ hygiene Visit 2- Continue teaching Discharge instructions- include additional information on smoking cessation , sternal dressing (sternal vac) Visit 3- Continue teaching- Cough and deep breathing, incision monitoring. Choose my plate Visit 4- Continue teaching- Discuss limitations Discuss how they are feeling Discuss progress toward goals Remaining visits- continue teaching and monitoring For any questions please call : Saturday 8am-5pm Heart & Vascular Surgery Office ( Dr. Denise & Dr. Christina), After Hours / Nights (5pm -8am) Weekends and Holidays Please call [facility] Cardiac Intermediate Care Unit (CIC) Charge Nurse PREVENA Single Use Negative Wound Therapy System Caregiver Instruction Sheet 1. A Prevena dressing system was applied to the chest incision during surgery , to promote wound healing. It works via a suction device (negative pressure wound therapy) to remove low to moderate levels of exudate (drainage) and infectious materials. We recommend that the device stay in place for up to seven days, from day of surgery. 2. Day of Surgery__07/22/17 Day of Removal ____/06/12 3. The dressing should only be removed by a health long term care pharmacist. Please arrange removal of device to coincide with Home Health visit and or with Nursing staff at Rehab 4. If skin reddening or irritation of skin occurs, or excessive drainage, please notify the Cardiovascular Surgeons office at [phone]. 5. Light showering is permissible; however the pump should be disconnected and placed in safe location, where it will not get wet. The dressing should not be exposed to direct spray or submerged in water. No bath tub / shower only. Ensure the end of the tubing attached to the dressing is facing down so that water does not enter the top of the tube. 6. To remove Prevena dressing: press purple button to turn off device / remove the suction. Then disconnect the tubing from the pump. The fixation strips should be stretched away from the skin and the dressing lifted at one corner and peeled back until it has been fully removed. 7. After removal, it is ok to shower daily using liquid dial soap and clean wash cloth, rinse and pat dry, and leave incision open to air dry. For any concerns regarding Prevena dressing, and or wounds, please contact Page White, patient navigator at [phone] or notify the Cardiovascular Surgeons office at [phone]. Incentive spirometry Q1 hr x 10, while awake, also use acapella device hourly whole awake Sternal Breast Bone Precautions: NO pushing or pulling, ( pt must use sternal pillow to support chest with all activities and with coughing ( takes up to 3 months breast bone to heal ) Daily incision care: ok to shower daily, no tub bath. Wash all incisions with liquid dial soap, clean wash cloth to each site, rinse and pat dry. Observe for any signs of infection, such as drainage which is dark yellow, fu, green or foul smelling. Immediately report to the surgeon any drainage from the chest incision, or legs, and for any abnormal drainage from the chest tube sites. Notify surgeon if any temp >101.5 degrees F. When specialty dressing removed/ or if you do not have one, continue to shower daily as above, then rinse and pat incision dry and paint with betadine daily x 5 days. Allow steri strips to fall off if you have any. Avoid lotions, creams, salves, oils, etc. for the first month staple removal to scalp on 07/28/17 Please see attached forms for additional instructions regarding post Open Heart specialty wound vacuum dressings. WILL or Prevena , Dressing to be removed by Nursing staff on _07/29/60 F/U appointment: as per DC instructions: PCP in 2 weeks, CV surgeon 2 weeks, Glass Forming Crew Member 3-4 weeks For any questions regarding incisions/ dressing / meds / post op care or above Symptoms, Saturday 8am-5pm Heart & Vascular Surgery Office ( Dr. Denise & Dr. Christina), After Hours / Nights (5pm -8am) Weekends and Holidays Please call [facility] Cardiac Intermediate Care Unit (CIC) Charge Nurse I have seen patient Shashi Sánchez on 07/23/17. My clinical findings support the need for the requested home health care services because: Deconditioned w/ increased weakness I certify that my clinical findings support that this patient is homebound because: Post-op weakness Fariba Medina July 23, 2017 15:30
[2017-07-23] MEDS: ACETAMINOPHEN/HYDROcodone 325 MG/5 MG TAB PO PRN (20:15)
[2017-07-23] MEDS: DOCUSATE SODIUM 100 MG CAP PO SCH (21:00)
[2017-07-23] MEDS: ATORVASTATIN 40 MG TAB PO SCH (21:00)
[2017-07-23] MEDS ORDERED: diphenhydrAMINE HCL 25 MG CAP PO PRN (21:00)
[2017-07-23] MEDS: SENNOSIDES 8.6 MG TAB PO SCH (21:00)
[2017-07-24] VITALS (19 sets, daily range): BP systolic 105–144; BP diastolic 58–80; PULSE 66–117; RESP 16–20; TEMP 97.6–98.7; O2SAT 93–97
[2017-07-24] MEDS: ACETAMINOPHEN/HYDROcodone 325 MG/5 MG TAB PO PRN (00:36)
[2017-07-24] MEDS: INSULIN ASPART SUPPLEMENTAL SCALE SQ SCH ×5 (02:00→21:00)
[2017-07-24] MEDS: ACETAMINOPHEN 1000 MG/100 ML 100 ML IV SCH ×4 (02:18→21:36)
[2017-07-24] MEDS: ceFAZolin 2 GM PREMIX 50 ML IV SCH (04:00)
[2017-07-24] MEDS: METOCLOPRAMIDE HCL 10 MG/2 ML VIAL IV PUSH SCH ×2 (05:22)
[2017-07-24] MEDS: LEVOTHYROXINE SODIUM 25 MCG TAB PO SCH (05:22)
[2017-07-24] MEDS: PANTOPRAZOLE SOD 40 MG DELAYED RELEASE TAB PO SCH (05:22)
[2017-07-24 05:32] LABS: AUTOMATED NEUTROPHIL # 5.6 TH/MM3 (1.8-7.7); BASOPHIL % 0.6 % (0.0-2.0); EOSINOPHIL # 0.1 TH/MM3 (0-0.4); EOSINOPHIL % 1.8 % (0.0-4.0); LYMPH % 6.5 % (9.0-44.0); LYMPHOCYTE # 0.4 TH/MM3 (1.0-4.8); MEAN CELL VOLUME 98.2 FL (80.0-100.0); MEAN CORPUSCULAR HEMOGLOBIN 33.5 PG (27.0-34.0); MEAN CORPUSCULAR HGB CONC 34.2 % (32.0-36.0); MEAN PLATELET VOLUME 8.5 FL (7.0-11.0); MONO % 9.2 % (0.0-8.0); MONOCYTE # 0.6 TH/MM3 (0-0.9); NEUT % 81.9 % (16.0-70.0); PLATELET COUNT 218 TH/MM3 (150-450); RED BLOOD COUNT 3.57 MIL/MM3 (4.50-5.90); RED CELL DISTRIBUTION WIDTH 15.4 % (11.6-17.2); WHITE BLOOD COUNT 6.8 TH/MM3 (4.0-11.0)
[2017-07-24 06:02] LABS: ALBUMIN 2.9 GM/DL (3.4-5.0); AST (GOT) 18 U/L (15-37); BICARBONATE 23.7 MEQ/L (21.0-32.0); BLOOD UREA NITROGEN 11 MG/DL (7-18); CALCIUM 8.5 MG/DL (8.5-10.1); CHLORIDE 106 MEQ/L (98-107); CREATININE 0.78 MG/DL (0.60-1.30); GLOMERULAR FILTRATION RATE 97 ML/MIN (>89); GLUCOSE,RANDOM 96 MG/DL (74-106); MAGNESIUM 2.3 MG/DL (1.5-2.5); SODIUM (NA) 139 MEQ/L (136-145)
[2017-07-24 06:03] LABS: ALT (GPT) 15 U/L (12-78)
[2017-07-24 06:15] LABS: ALKALINE PHOSPHATASE 53 U/L (45-117); FREE T3 1.65 PG/ML (2.18-3.98); THYROXINE (T4) 5.6 MCG/DL (4.5-12.1); TOTAL BILIRUBIN ADULT 0.6 MG/DL (0.2-1.0); TOTAL PROTEIN 5.9 GM/DL (6.4-8.2)
[2017-07-24] MEDS: RESP: ALBUTEROL 2.5 MG/IPRATROPIUM 0.5 MG NEB (SCH) NEB ×3 (07:44→19:11)
[2017-07-24] MEDS: MULTIVITAMINS/MINERALS THERAPEUTIC TAB PO SCH (08:13)
[2017-07-24] MEDS: MAGNESIUM HYDROXIDE SUSP 30 ML CUP PO SCH (08:13)
[2017-07-24] MEDS: AMIODARONE 200 MG TAB PO SCH ×2 (08:13→21:37)
[2017-07-24] MEDS: CLOPIDOGREL 75 MG TAB PO SCH (08:13)
[2017-07-24] MEDS: THIAMINE HCL 100 MG TAB PO SCH (08:13)
[2017-07-24] MEDS: DOCUSATE SODIUM 100 MG CAP PO SCH ×2 (08:13→21:37)
[2017-07-24] MEDS: ASPIRIN 81 MG CHEW TAB PO SCH (08:13)
[2017-07-24] MEDS: FOLIC ACID 1 MG TAB PO SCH (08:13)
[2017-07-24] MEDS: SODIUM CHLORIDE 0.9% FLUSH 10 ML FLUSH IV FLUSH SCH ×2 (08:14→21:38)
[2017-07-24] MEDS: POLYETHYLENE GLYCOL 17 GM PKG PO SCH (08:14)
--- NOTE | 2017-07-24 08:59 | PD.CAR.PN ---
CVT Progress Note Subjective/Hospital Course: A 72-year-old male transfer from [facility], had an abnormal EKG with a right bundle branch block and was told he had a probable prior [place] that he was not aware of. Had a positive stress test which showed anterior septal ischemia. The patient underwent cardiac catheterization by Dr. Eladio Davis which showed proximal disease at the bifurcation of the first diagonal. There is approximately 80-90% lesions, heavily calcified. The LAD after the first septal branch is 99-100% occluded with [place] 1 flow. The LAD fills via collaterals from the diagonal vessel in the circumflex system. The left circumflex had severe stenosis in the mid segment with an 80-90% lesion noted, 2 obtuse marginals were noted afterwards. The right coronary artery is also diseased. There is approximately a 50% lesion and a mid 90% lesion. The PDA had evidence of small aneurysm with and without another 90% lesion noted. There were collaterals from the conus branch to a probable ramus vessel on the other side versus the LAD. There was some mild left subclavian stenosis of 10- 20% lesion in the vessel. The BRUNER was widely patent. Ejection fraction 60%. He did have an echocardiogram when he had his initial workup at Dr. Brandt's office, which showed an ejection fraction of 60-65%, mild LVH, trivial to mild mitral regurgitation, mild tricuspid regurgitation. Transferred for eval for CABG bypass grafting. 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 This was contributed to some type of ALLERGIC REACTION TO A TRICHOMONAS OUTBREAK at age 26, hyperlipidemia, gastroesophageal reflux disease, questionable prior [place], hypertension, hypothyroidism. Drinks 6- 8 shots of whisky per day 07/18 pt agitation last pm , nursing eval for CIWA protocol , given ativan got out of bed , unclothed fell hit his on door jam , sustained a 4cm length and 0.2cm deep area was irrigated with normal saline , cleansed with betadine and under sterile technique 5 pialr were placed to close wound wound is now closed and approximated ancef 1 gram q8 x 3 doses and TD dose IM given fall risk precautions, consult Hospitalist for medical management will now hold surgery until Saturday CT Brain: 1. Senescent changes with mild to moderate periventricular ischemic white matter demyelination. 2. No acute intracranial abnormality. 07/19 doing well, no complaints of agitation/ no tremors noted for surgery on 07/20 Doing well OR Friday 07/21 No complaints OR 07/22 surgery: 1. Urgent Clampless Off-pump Coronary Artery Bypass Grafting x 4 with Left Internal Mammary Artery (BRUNER) to Left Anterior Descending (LAD), reverse saphenous vein graft to the Diagonal 1 (D1) branch of the Left Anterior Descending Coronary Artery, reverse saphenous vein graft to the Obtuse Marginal 2 (OM2) branch of the Left Circumflex Coronary Artery, reverse saphenous vein graft to the Posterior Descending (RPDA) branch of the Right Coronary Artery 2. Right Leg Endoscopic Vein [place] 3. Intraoperative Vein Mapping. extubated after surgery crystalloid 3800cc, cell saver 600cc, EBL 1000cc 07/23 remains on low dose Paresh gtt given crystalloid last pm and colloid this am CVP 8-10 on nasal cannula , pain controlled up in chair plan is to wean Paresh as tolerated/ remain in CVICU for now 07/24 off Paresh gtt , slightly tachycardic, add low dose BB give one dose of lasix later this am stable to transfer to stepdown wean 02 as tolerated Objective: Vital Signs Date Time Temp Pulse Resp B/P (MAP) Pulse Ox O2 Delivery O2 Flow Rate FiO2 07/24/17 08:53 20 07/24/17 07:44 94 Nasal Cannula 3.00 07/24/17 07:00 94 Nasal Cannula 3.00 07/24/17 03:00 66 07/24/17 03:00 98.7 69 16 105/65 (78) 97 07/24/17 03:00 96 Nasal Cannula 3.00 07/23/17 23:00 99.0 93 16 95/64 (74) 93 Arterial Line 07/23/17 23:00 98 Nasal Cannula 3.00 07/23/17 23:00 90 07/23/17 21:18 97 Nasal Cannula 4.00 07/23/17 19:15 94 Nasal Cannula 3.00 07/23/17 19:00 98.8 108 18 128/59 (82) 95 119/73 (88) 07/23/17 19:00 102 07/23/17 16:59 86 118/63 07/23/17 16:00 94 122/51 5/29/18 15:52 20 07/23/17 15:00 97 Nasal Cannula 3.00 07/23/17 15:00 84 07/23/17 15:00 98.6 94 18 116/69 (85) 96 122/51 (74) 07/23/17 15:00 85 123/55 07/23/17 14:00 85 120/53 07/23/17 11:31 74 07/23/17 11:28 97 Nasal Cannula 3.00 07/23/17 11:25 98.7 76 18 117/71 (86) 119/60 (79) 07/23/17 11:24 98.7 76 18 117/71 (86) 97 119/60 (79) Labs: Laboratory Tests Test 07/24/17 05:00 White Blood Count 6.8 TH/MM3 (4.0-11.0) Red Blood Count 3.57 MIL/MM3 (4.50-5.90) Hemoglobin 12.0 GM/DL (13.0-17.0) Hematocrit 35.0 % (39.0-51.0) Mean Corpuscular Volume 98.2 FL (80.0-100.0) Mean Corpuscular Hemoglobin 33.5 PG (27.0-34.0) Mean Corpuscular Hemoglobin Concent 34.2 % (32.0-36.0) Red Cell Distribution Width 15.4 % (11.6-17.2) Platelet Count 218 TH/MM3 (150-450) Mean Platelet Volume 8.5 FL (7.0-11.0) Neutrophils (%) (Auto) 81.9 % (16.0-70.0) Lymphocytes (%) (Auto) 6.5 % (9.0-44.0) Monocytes (%) (Auto) 9.2 % (0.0-8.0) Eosinophils (%) (Auto) 1.8 % (0.0-4.0) Basophils (%) (Auto) 0.6 % (0.0-2.0) Neutrophils # (Auto) 5.6 TH/MM3 (1.8-7.7) Lymphocytes # (Auto) 0.4 TH/MM3 (1.0-4.8) Monocytes # (Auto) 0.6 TH/MM3 (0-0.9) Eosinophils # (Auto) 0.1 TH/MM3 (0-0.4) Basophils # (Auto) 0.0 TH/MM3 (0-0.2) CBC Comment DIFF FINAL Differential Comment Blood Urea Nitrogen 11 MG/DL (7-18) Creatinine 0.78 MG/DL (0.60-1.30) Random Glucose 96 MG/DL (74-106) Total Protein 5.9 GM/DL (6.4-8.2) Albumin 2.9 GM/DL (3.4-5.0) Calcium Level 8.5 MG/DL (8.5-10.1) Magnesium Level 2.3 MG/DL (1.5-2.5) Alkaline Phosphatase 53 U/L (45-117) Aspartate Amino Transf (AST/SGOT) 18 U/L (15-37) Alanine Aminotransferase (ALT/SGPT) 15 U/L (12-78) Total Bilirubin 0.6 MG/DL (0.2-1.0) Sodium Level 139 MEQ/L (136-145) Potassium Level 3.8 MEQ/L (3.5-5.1) Chloride Level 106 MEQ/L (98-107) Carbon Dioxide Level 23.7 MEQ/L (21.0-32.0) Anion Gap 9 MEQ/L (5-15) Estimat Glomerular Filtration Rate 97 ML/MIN (>89) Thyroxine (T4) 5.6 MCG/DL (4.5-12.1) Free Triiodothyronine (T3) pg/dL 1.65 PG/ML (2.18-3.98) Thyroid Stimulating Hormone 3rd Gen 3.770 uIU/ML (0.358-3.740) Result Diagram: 07/24/17 0500 07/24/17 0500 (1) S/P CABG x 4 Plan: ASA, statin ,start BB 2/2 gentle diuresis pulm toileting OOB / PT as tolerated CM eval for HHC at discharge (2) Hyperlipemia Plan: on statin (3) Hypothyroidism Plan: on Synthroid (4) Hypertension Plan: BP labile (5) Coronary artery disease Plan: ASA, start BB (6) ETOH abuse Plan: CIWA protocol dc (7) Laceration Plan: pilar to occipital area ancef x 3 doses TD dose leave pilar in total 10 days to be removed 07/28 Fariba Medina July 24, 2017 08:59
[2017-07-24] MEDS ORDERED: POTASSIUM CHLORIDE 20 MEQ CONTROLLED RELEASE TAB PO ONE ×2 (09:00→11:00)
--- NOTE | 2017-07-24 09:23 | HHI.PR ---
Subjective Remarks Patient reports discomfort. Pain is controlled. He slept better last night. No other complaints today. Ambulation is improving. Objective Vital Signs Date Time Temp Pulse Resp B/P (MAP) Pulse Ox O2 Delivery O2 Flow Rate FiO2 07/24/17 08:53 20 07/24/17 07:44 94 Nasal Cannula 3.00 07/24/17 07:00 94 Nasal Cannula 3.00 07/24/17 03:00 66 07/24/17 03:00 98.7 69 16 105/65 (78) 97 07/24/17 03:00 96 Nasal Cannula 3.00 07/23/17 23:00 99.0 93 16 95/64 (74) 93 Arterial Line 07/23/17 23:00 98 Nasal Cannula 3.00 07/23/17 23:00 90 07/23/17 21:18 97 Nasal Cannula 4.00 07/23/17 19:15 94 Nasal Cannula 3.00 07/23/17 19:00 98.8 108 18 128/59 (82) 95 119/73 (88) 07/23/17 19:00 102 07/23/17 16:59 86 118/63 07/23/17 16:00 94 122/51 07/23/17 15:52 20 07/23/17 15:00 97 Nasal Cannula 3.00 07/23/17 15:00 84 07/23/17 15:00 98.6 94 18 116/69 (85) 96 122/51 (74) 07/23/17 15:00 85 123/55 07/23/17 14:00 85 120/53 07/23/17 11:31 74 07/23/17 11:28 97 Nasal Cannula 3.00 07/23/17 11:25 98.7 76 18 117/71 (86) 119/60 (79) 07/23/17 11:24 98.7 76 18 117/71 (86) 97 119/60 (79) I/O 07/23/17 07/23/17 07/23/17 07/24/17 07/24/17 07/24/17 07:00 15:00 23:00 07:00 15:00 23:00 Intake Total 1540 ml 200 ml 530 ml 480 ml Output Total 615 ml 1090 ml 910 ml Balance 925 ml 200 ml -560 ml -430 ml Intake Oral 120 ml 480 ml 480 ml IV Total 1420 ml 200 ml 50 ml Output Urine Total 405 ml 700 ml 770 ml Chest Tube Drainage Total 210 ml 390 ml 140 ml # Bowel Movements 0 Result Diagram: 07/24/17 0500 07/24/17 0500 Objective Remarks GENERAL: NAD, A&Ox3 HEAD: Normocephalic. NECK: Supple, trachea midline. No lymphadenopathy. EYES: No scleral icterus. No injection or drainage. CARDIOVASCULAR: Regular rate and rhythm without murmurs, gallops, or rubs. RESPIRATORY: Breath sounds equal bilaterally. No accessory muscle use. GASTROINTESTINAL: Abdomen soft, non-tender, nondistended. MUSCULOSKELETAL: No cyanosis, or edema. Chest tube is in place. Anterior sternal spacer/bandage present. SKIN: Warm and dry. NEURO: No focal neurological deficitis. A/P Problem List: (1) Coronary artery disease ICD Code: I25.10 - Atherosclerotic heart disease of [place] coronary artery without angina pectoris Assessment and Plan 72 year old male admitted with symptomatic CAD. Heart cath showed multi-vessel disease. CABG recommended. Status post CABG on 07/22/2017. Improved sleep with Benadryl. Continue to follow CBC and CMP. Labs ordered for further monitoring. Recovering well thus far. CAD status post CABG Cardiothoracic management post op Follow CBC, CMP PRN pain treatments Bedrest for now BP control with pressors as needed Follow oxygenation Monitor in ICU Preceeding weakness/falls PT post op HTN Follow BP and treat as needed for control Delerium Tremens CIWA protocall continued Dementia May be chronic Supportive care B12 Deficiency Replacement supplement in place Hypothyroidism Follow as an outpatient Hyperlipidemia Continue statin Follow as an outpatient GERD PPI DVT Prophylaxis SCDs Discharge Planning SNF likely needed when discharge appropriate Wing Hammond MD July 24, 2017 09:23
[2017-07-24] MEDS: METOPROLOL TARTRATE 25 MG TAB PO SCH ×2 (10:22→21:37)
[2017-07-24] MEDS ORDERED: FUROSEMIDE 40 MG/4 ML VIAL IV PUSH ONE (11:00)
[2017-07-24] MEDS: KETOROLAC TROMETHAMINE 30 MG/ML (IVP) VIAL IV PUSH PRN (11:34)
[2017-07-24] MEDS: SENNOSIDES 8.6 MG TAB PO SCH (21:37)
[2017-07-24] MEDS: ATORVASTATIN 40 MG TAB PO SCH (21:37)
[2017-07-25] VITALS (29 sets, daily range): BP systolic 110–123; BP diastolic 62–84; PULSE 68–87; RESP 18–19; TEMP 97.7–98.4; O2SAT 94–96
[2017-07-25] MEDS: ACETAMINOPHEN 1000 MG/100 ML 100 ML IV SCH ×2 (03:34→08:45)
[2017-07-25 04:54] LABS: AUTOMATED NEUTROPHIL # 4.7 TH/MM3 (1.8-7.7); BASOPHIL % 0.7 % (0.0-2.0); EOSINOPHIL # 0.3 TH/MM3 (0-0.4); HEMATOCRIT 32.8 % (39.0-51.0); HEMOGLOBIN 11.4 GM/DL (13.0-17.0); LYMPH % 10.8 % (9.0-44.0); LYMPHOCYTE # 0.7 TH/MM3 (1.0-4.8); MEAN CELL VOLUME 97.9 FL (80.0-100.0); MEAN CORPUSCULAR HEMOGLOBIN 33.9 PG (27.0-34.0); MEAN CORPUSCULAR HGB CONC 34.7 % (32.0-36.0); MEAN PLATELET VOLUME 8.8 FL (7.0-11.0); MONOCYTE # 0.6 TH/MM3 (0-0.9); NEUT % 75.5 % (16.0-70.0); PLATELET COUNT 201 TH/MM3 (150-450); RED BLOOD COUNT 3.35 MIL/MM3 (4.50-5.90); RED CELL DISTRIBUTION WIDTH 14.9 % (11.6-17.2); WHITE BLOOD COUNT 6.3 TH/MM3 (4.0-11.0)
[2017-07-25 05:15] LABS: ALBUMIN 2.7 GM/DL (3.4-5.0); AST (GOT) 20 U/L (15-37); BICARBONATE 23.3 MEQ/L (21.0-32.0); BLOOD UREA NITROGEN 13 MG/DL (7-18); CALCIUM 8.6 MG/DL (8.5-10.1); CHLORIDE 106 MEQ/L (98-107); CREATININE 0.86 MG/DL (0.60-1.30); GLOMERULAR FILTRATION RATE 87 ML/MIN (>89); GLUCOSE,RANDOM 72 MG/DL (74-106); SODIUM (NA) 140 MEQ/L (136-145)
[2017-07-25 05:17] LABS: ALT (GPT) 12 U/L (12-78)
[2017-07-25 05:20] LABS: ALKALINE PHOSPHATASE 56 U/L (45-117); TOTAL BILIRUBIN ADULT 0.6 MG/DL (0.2-1.0)
[2017-07-25] MEDS: LEVOTHYROXINE SODIUM 50 MCG TAB PO SCH (05:34)
[2017-07-25] MEDS: PANTOPRAZOLE SOD 40 MG DELAYED RELEASE TAB PO SCH (05:34)
[2017-07-25] MEDS: INSULIN ASPART SUPPLEMENTAL SCALE SQ SCH ×4 (08:00→21:00)
[2017-07-25] MEDS: RESP: ALBUTEROL 2.5 MG/IPRATROPIUM 0.5 MG NEB (SCH) NEB (08:28)
[2017-07-25] MEDS: POLYETHYLENE GLYCOL 17 GM PKG PO SCH (08:45)
[2017-07-25] MEDS: THIAMINE HCL 100 MG TAB PO SCH (08:46)
[2017-07-25] MEDS: CYANOCOBALAMIN 1,000 MCG TAB PO SCH (08:46)
[2017-07-25] MEDS: DOCUSATE SODIUM 100 MG CAP PO SCH ×2 (08:46→21:00)
[2017-07-25] MEDS: AMIODARONE 200 MG TAB PO SCH ×2 (08:46→21:01)
[2017-07-25] MEDS: MULTIVITAMINS/MINERALS THERAPEUTIC TAB PO SCH (08:46)
[2017-07-25] MEDS: ASPIRIN 81 MG CHEW TAB PO SCH (08:46)
[2017-07-25] MEDS: METOPROLOL TARTRATE 25 MG TAB PO SCH ×2 (08:46→21:01)
[2017-07-25] MEDS: FOLIC ACID 1 MG TAB PO SCH (08:46)
[2017-07-25] MEDS: MAGNESIUM HYDROXIDE SUSP 30 ML CUP PO SCH (08:46)
[2017-07-25] MEDS: CLOPIDOGREL 75 MG TAB PO SCH (08:47)
[2017-07-25] MEDS: SODIUM CHLORIDE 0.9% FLUSH 10 ML FLUSH IV FLUSH SCH ×2 (08:48→21:00)
[2017-07-25] MEDS ORDERED: SOD PHOSPHATE/SOD BIPHOSPHATE (ADULT) ENEMA 133ML RECTAL PRN (10:30)
--- NOTE | 2017-07-25 10:59 | HHI.PR ---
Subjective Remarks Mr. Sánchez continues to do well. He is transitioning out of the CVICU. Ambulation is increasing. Pain is under control. Objective Vital Signs Date Time Temp Pulse Resp B/P (MAP) Pulse Ox O2 Delivery O2 Flow Rate FiO2 07/25/17 10:00 74 07/25/17 09:00 87 07/25/17 08:29 96 21 07/25/17 08:00 83 07/25/17 07:45 96 Room Air 07/25/17 07:45 97.7 83 18 116/75 (89) 96 07/25/17 07:00 81 07/25/17 06:16 83 07/25/17 05:40 79 07/25/17 04:45 75 07/25/17 03:15 75 07/25/17 03:15 98.0 78 19 110/62 (78) 96 07/25/17 03:15 96 Room Air 07/25/17 02:02 70 07/25/17 01:15 72 07/25/17 00:50 81 07/24/17 23:25 84 07/24/17 23:25 98.4 89 20 106/58 (74) 96 07/24/17 23:25 96 Nasal Cannula 1.50 07/24/17 22:30 76 07/24/17 21:30 74 07/24/17 20:20 75 07/24/17 19:50 91 07/24/17 19:50 98.2 96 19 108/65 (79) 96 07/24/17 19:50 96 Nasal Cannula 2.00 07/24/17 19:13 93 Nasal Cannula 2.00 07/24/17 16:00 102 07/24/17 15:10 94 Nasal Cannula 07/24/17 15:10 97.8 108 19 108/62 (77) 94 07/24/17 15:00 109 07/24/17 14:18 94 Nasal Cannula 2.00 07/24/17 14:00 104 07/24/17 13:00 114 07/24/17 12:12 117 07/24/17 11:28 114 07/24/17 11:09 95 Nasal Cannula 2.00 07/24/17 11:09 97.6 115 19 122/77 (92) 95 07/24/17 11:00 113 I/O 507/24/17 07/24/17 07/25/17 07/25/17 07/25/17 07:00 15:00 23:00 07:00 15:00 23:00 Intake Total 480 ml 580 ml 480 ml Output Total 910 ml 200 ml 790 ml 680 ml Balance -430 ml -200 ml -210 ml -200 ml Intake Oral 480 ml 480 ml 480 ml IV Total 100 ml Output Urine Total 770 ml 200 ml 600 ml 550 ml Chest Tube Drainage Total 140 ml 190 ml 130 ml # Bowel Movements 0 0 Result Diagram: 07/25/178 07/25/17327 Objective Remarks GENERAL: NAD, A&Ox3 HEAD: Normocephalic. NECK: Supple, trachea midline. No lymphadenopathy. EYES: No scleral icterus. No injection or drainage. CARDIOVASCULAR: Regular rate and rhythm without murmurs, gallops, or rubs. RESPIRATORY: Breath sounds equal bilaterally. No accessory muscle use. GASTROINTESTINAL: Abdomen soft, non-tender, nondistended. MUSCULOSKELETAL: No cyanosis, or edema. Chest tube is in place. Anterior sternal spacer/bandage present. SKIN: Warm and dry. NEURO: No focal neurological deficitis. A/P Problem List: (1) Coronary artery disease ICD Code: I25.10 - Atherosclerotic heart disease of [place] coronary artery without angina pectoris Assessment and Plan 72 year old male admitted with symptomatic CAD. Heart cath showed multi-vessel disease. CABG recommended. Status post CABG on 07/22/2017. Labs demonstrate stability. Patient is improving with physical therapy. Continue physical therapy. Continue monitoring CBC and CMP. CAD status post CABG Cardiothoracic management post op Follow CBC, CMP PRN pain treatments Bedrest for now BP control with pressors as needed Follow oxygenation Monitor in ICU Preceeding weakness/falls PT post op HTN Follow BP and treat as needed for control Delerium Tremens CIWA protocall continued Dementia May be chronic Supportive care B12 Deficiency Replacement supplement in place Hypothyroidism Follow as an outpatient Hyperlipidemia Continue statin Follow as an outpatient GERD PPI DVT Prophylaxis SCDs Discharge Planning SNF likely needed when discharge appropriate Wing Hammond MD July 25, 2017 10:59
--- NOTE | 2017-07-25 15:05 | PD.CAR.PN ---
CVT Progress Note Subjective/Hospital Course: A 72-year-old male transfer from [facility], had an abnormal EKG with a right bundle branch block and was told he had a probable prior [place] that he was not aware of. Had a positive stress test which showed anterior septal ischemia. The patient underwent cardiac catheterization by Dr. Eladio Davis which showed proximal disease at the bifurcation of the first diagonal. There is approximately 80-90% lesions, heavily calcified. The LAD after the first septal branch is 99-100% occluded with [place] 1 flow. The LAD fills via collaterals from the diagonal vessel in the circumflex system. The left circumflex had severe stenosis in the mid segment with an 80-90% lesion noted, 2 obtuse marginals were noted afterwards. The right coronary artery is also diseased. There is approximately a 50% lesion and a mid 90% lesion. The PDA had evidence of small aneurysm with and without another 90% lesion noted. There were collaterals from the conus branch to a probable ramus vessel on the other side versus the LAD. There was some mild left subclavian stenosis of 10- 20% lesion in the vessel. The BRUNER was widely patent. Ejection fraction 60%. He did have an echocardiogram when he had his initial workup at Dr. Brandt's office, which showed an ejection fraction of 60-65%, mild LVH, trivial to mild mitral regurgitation, mild tricuspid regurgitation. Transferred for eval for CABG bypass grafting. 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 This was contributed to some type of ALLERGIC REACTION TO A TRICHOMONAS OUTBREAK at age 26, hyperlipidemia, gastroesophageal reflux disease, questionable prior [place], hypertension, hypothyroidism. Drinks 6- 8 shots of whisky per day 07/18 pt agitation last pm , nursing eval for CIWA protocol , given ativan got out of bed , unclothed fell hit his on door jam , sustained a 4cm length and 0.2cm deep area was irrigated with normal saline , cleansed with betadine and under sterile technique 5 pilar were placed to close wound wound is now closed and approximated ancef 1 gram q8 x 3 doses and TD dose IM given fall risk precautions, consult Hospitalist for medical management will now hold surgery until Saturday CT Brain: 1. Senescent changes with mild to moderate periventricular ischemic white matter demyelination. 2. No acute intracranial abnormality. 07/19 doing well, no complaints of agitation/ no tremors noted for surgery on 07/20 Doing well OR Friday 07/21 No complaints OR 07/22 surgery: 1. Urgent Clampless Off-pump Coronary Artery Bypass Grafting x 4 with Left Internal Mammary Artery (BRUNER) to Left Anterior Descending (LAD), reverse saphenous vein graft to the Diagonal 1 (D1) branch of the Left Anterior Descending Coronary Artery, reverse saphenous vein graft to the Obtuse Marginal 2 (OM2) branch of the Left Circumflex Coronary Artery, reverse saphenous vein graft to the Posterior Descending (RPDA) branch of the Right Coronary Artery 2. Right Leg Endoscopic Vein [place] 3. Intraoperative Vein Mapping. extubated after surgery crystalloid 3800cc, cell saver 600cc, EBL 1000cc 07/23 remains on low dose Paresh gtt given crystalloid last pm and colloid this am CVP 8-10 on nasal cannula , pain controlled up in chair plan is to wean Paresh as tolerated/ remain in CVICU for now 07/24 off Paresh gtt , slightly tachycardic, add low dose BB give one dose of lasix later this am stable to transfer to stepdown wean 02 as tolerated 07/25 doing well on room air chest tubes dc without difficulty eval for discharge home in am Objective: GENERAL: A&O x 3 SKIN: Warm and dry. prevena dressing to chest / incision intact to right leg HEAD: Normocephalic. EYES: No scleral icterus. No injection or drainage. NECK: Supple, trachea midline. No JVD or lymphadenopathy. CARDIOVASCULAR: Regular rate and rhythm without murmurs, gallops, or rubs. RESPIRATORY: Breath sounds equal bilaterally. No accessory muscle use. GASTROINTESTINAL: Abdomen soft, non-tender, nondistended. MUSCULOSKELETAL: No cyanosis, or edema. BACK: Nontender without obvious deformity. No CVA tenderness. Vital Signs Date Time Temp Pulse Resp B/P (MAP) Pulse Ox O2 Delivery O2 Flow Rate FiO2 07/25/17 14:00 81 07/25/17 13:00 82 07/25/17 12:00 71 07/25/17 11:30 98.4 76 18 115/63 (80) 96 07/25/17 11:06 96 Room Air 07/25/17 11:00 68 07/25/17 10:00 74 07/25/17 09:00 87 07/25/17 08:29 96 21 07/25/17 08:00 83 07/25/17 07:45 96 Room Air 07/25/17 07:45 97.7 83 18 116/75 (89) 96 07/25/17 07:00 81 07/25/17 06:16 83 07/25/17 05:40 79 07/25/17 04:45 75 07/25/17 03:15 75 07/25/17 03:15 98.0 78 19 110/62 (78) 96 07/25/17 03:15 96 Room Air 07/25/17 02:02 70 07/25/17 01:15 72 07/25/17 00:50 81 07/24/17 23:25 84 07/24/17 23:25 98.4 89 20 106/58 (74) 96 07/24/17 23:25 96 Nasal Cannula 1.50 07/24/17 22:30 76 07/24/17 21:30 74 07/24/17 20:20 75 07/24/17 19:50 91 07/24/17 19:50 98.2 96 19 108/65 (79) 96 07/24/17 19:50 96 Nasal Cannula 2.00 07/24/17 19:13 93 Nasal Cannula 2.00 07/24/17 16:00 102 07/24/17 15:10 94 Nasal Cannula 07/24/17 15:10 97.8 108 19 108/62 (77) 94 Labs: Laboratory Tests Test 07/25/17 03:28 White Blood Count 6.3 TH/MM3 (4.0-11.0) Red Blood Count 3.35 MIL/MM3 (4.50-5.90) Hemoglobin 11.4 GM/DL (13.0-17.0) Hematocrit 32.8 % (39.0-51.0) Mean Corpuscular Volume 97.9 FL (80.0-100.0) Mean Corpuscular Hemoglobin 33.9 PG (27.0-34.0) Mean Corpuscular Hemoglobin Concent 34.7 % (32.0-36.0) Red Cell Distribution Width 14.9 % (11.6-17.2) Platelet Count 201 TH/MM3 (150-450) Mean Platelet Volume 8.8 FL (7.0-11.0) Neutrophils (%) (Auto) 75.5 % (16.0-70.0) Lymphocytes (%) (Auto) 10.8 % (9.0-44.0) Monocytes (%) (Auto) 9.0 % (0.0-8.0) Eosinophils (%) (Auto) 4.0 % (0.0-4.0) Basophils (%) (Auto) 0.7 % (0.0-2.0) Neutrophils # (Auto) 4.7 TH/MM3 (1.8-7.7) Lymphocytes # (Auto) 0.7 TH/MM3 (1.0-4.8) Monocytes # (Auto) 0.6 TH/MM3 (0-0.9) Eosinophils # (Auto) 0.3 TH/MM3 (0-0.4) Basophils # (Auto) 0.0 TH/MM3 (0-0.2) CBC Comment DIFF FINAL Differential Comment Blood Urea Nitrogen 13 MG/DL (7-18) Creatinine 0.86 MG/DL (0.60-1.30) Random Glucose 72 MG/DL (74-106) Total Protein 6.0 GM/DL (6.4-8.2) Albumin 2.7 GM/DL (3.4-5.0) Calcium Level 8.6 MG/DL (8.5-10.1) Alkaline Phosphatase 56 U/L (45-117) Aspartate Amino Transf (AST/SGOT) 20 U/L (15-37) Alanine Aminotransferase (ALT/SGPT) 12 U/L (12-78) Total Bilirubin 0.6 MG/DL (0.2-1.0) Sodium Level 140 MEQ/L (136-145) Potassium Level 4.0 MEQ/L (3.5-5.1) Chloride Level 106 MEQ/L (98-107) Carbon Dioxide Level 23.3 MEQ/L (21.0-32.0) Anion Gap 11 MEQ/L (5-15) Estimat Glomerular Filtration Rate 87 ML/MIN (>89) Result Diagram: 07/25/178 07/25/17327 (1) S/P CABG x 4 Plan: ASA, statin ,start BB 2/2 pulm toileting OOB / PT CM eval for HHC at discharge chest tube dc (2) Hyperlipemia Plan: on statin (3) Hypothyroidism Plan: on Synthroid (4) Hypertension Plan: BP labile (5) Coronary artery disease Plan: ASA, start BB (6) ETOH abuse Plan: CIWA protocol dc / resolved (7) Laceration Plan: pilar to occipital area ancef x 3 doses TD dose leave pilar in total 10 days to be removed 07/28 Fariba Medina July 25, 2017 15:04
[2017-07-25] MEDS: SENNOSIDES 8.6 MG TAB PO SCH (21:00)
[2017-07-25] MEDS: ATORVASTATIN 40 MG TAB PO SCH (21:01)
[2017-07-26] VITALS (17 sets, daily range): BP systolic 111–129; BP diastolic 61–80; PULSE 65–82; RESP 16–20; TEMP 97.8–98.5; O2SAT 93–97
[2017-07-26 04:26] LABS: AUTOMATED NEUTROPHIL # 4.6 TH/MM3 (1.8-7.7); BASOPHIL # 0.1 TH/MM3 (0-0.2); BASOPHIL % 0.9 % (0.0-2.0); EOSINOPHIL # 0.2 TH/MM3 (0-0.4); EOSINOPHIL % 4.1 % (0.0-4.0); HEMATOCRIT 35.4 % (39.0-51.0); LYMPH % 8.5 % (9.0-44.0); LYMPHOCYTE # 0.5 TH/MM3 (1.0-4.8); MEAN CELL VOLUME 98.9 FL (80.0-100.0); MEAN CORPUSCULAR HEMOGLOBIN 33.6 PG (27.0-34.0); MEAN PLATELET VOLUME 8.3 FL (7.0-11.0); MONOCYTE # 0.5 TH/MM3 (0-0.9); NEUT % 77.5 % (16.0-70.0); PLATELET COUNT 270 TH/MM3 (150-450); RED BLOOD COUNT 3.58 MIL/MM3 (4.50-5.90); RED CELL DISTRIBUTION WIDTH 14.9 % (11.6-17.2); WHITE BLOOD COUNT 5.9 TH/MM3 (4.0-11.0)
[2017-07-26 05:01] LABS: ALBUMIN 2.7 GM/DL (3.4-5.0); AST (GOT) 18 U/L (15-37); BICARBONATE 22.2 MEQ/L (21.0-32.0); BLOOD UREA NITROGEN 11 MG/DL (7-18); CALCIUM 8.5 MG/DL (8.5-10.1); CHLORIDE 106 MEQ/L (98-107); GLOMERULAR FILTRATION RATE 94 ML/MIN (>89); GLUCOSE,RANDOM 76 MG/DL (74-106); SODIUM (NA) 140 MEQ/L (136-145)
[2017-07-26 05:02] LABS: ALT (GPT) 12 U/L (12-78)
[2017-07-26 05:04] LABS: ALKALINE PHOSPHATASE 56 U/L (45-117); TOTAL BILIRUBIN ADULT 0.6 MG/DL (0.2-1.0); TOTAL PROTEIN 6.3 GM/DL (6.4-8.2)
[2017-07-26] MEDS: LEVOTHYROXINE SODIUM 50 MCG TAB PO SCH (05:46)
[2017-07-26] MEDS: PANTOPRAZOLE SOD 40 MG DELAYED RELEASE TAB PO SCH (05:46)
--- NOTE | 2017-07-26 06:14 | RADRPT ---
EXAM DATE: 07/26/2017 5:10 AM EDT AGE/SEX: 72 years / Male INDICATIONS: Status post chest removal. CLINICAL DATA: This is the patient's subsequent encounter. Patient reports that signs and symptoms h ave been present for 1 day and indicates a pain score of 1/10. MEDICAL/SURGICAL HISTORY: None. CABG. COMPARISON: [facility] [place], 07/23/[place]. . FINDINGS: Previous sternotomy. Chest tubes have been removed. A questionable catheter fragment overlies the rig ht hilum. Attention to this is recommended on follow-up exam to include lateral view of the patient i s able. There is mild basilar airspace disease. Cardiomegaly. CONCLUSION: Questionable catheter or tube fragment overlying the right hilum. Attention to this is recommended on repeat examination. Previous chest tubes have been removed. Basilar airspace disease persists. Electronically signed by: Aaron Brower MD 07/26/2017 6:13 AM EDT
[2017-07-26] MEDS: INSULIN ASPART SUPPLEMENTAL SCALE SQ SCH ×2 (07:17→11:58)
[2017-07-26] MEDS: FOLIC ACID 1 MG TAB PO SCH (08:38)
[2017-07-26] MEDS: AMIODARONE 200 MG TAB PO SCH (08:38)
[2017-07-26] MEDS: ASPIRIN 81 MG CHEW TAB PO SCH (08:38)
[2017-07-26] MEDS: POLYETHYLENE GLYCOL 17 GM PKG PO SCH (08:38)
[2017-07-26] MEDS: MULTIVITAMINS/MINERALS THERAPEUTIC TAB PO SCH (08:38)
[2017-07-26] MEDS: CYANOCOBALAMIN 1,000 MCG TAB PO SCH (08:38)
[2017-07-26] MEDS: DOCUSATE SODIUM 100 MG CAP PO SCH (08:38)
[2017-07-26] MEDS: THIAMINE HCL 100 MG TAB PO SCH (08:38)
[2017-07-26] MEDS: CLOPIDOGREL 75 MG TAB PO SCH (08:38)
[2017-07-26] MEDS: SODIUM CHLORIDE 0.9% FLUSH 10 ML FLUSH IV FLUSH SCH (08:39)
[2017-07-26] MEDS: METOPROLOL TARTRATE 25 MG TAB PO SCH (08:39)
[2017-07-26] MEDS: MAGNESIUM HYDROXIDE SUSP 30 ML CUP PO SCH (08:39)
[2017-07-26] MEDS ORDERED: HYDR-3516 PO (11:08)
[2017-07-26] MEDS ORDERED: DOCU1CAP39 PO (11:08)
[2017-07-26] MEDS ORDERED: AMIO200T PO (11:08)
[2017-07-26] MEDS ORDERED: ATOR40TA16 PO (11:08)
[2017-07-26] MEDS ORDERED: PLAV75TA29 PO (11:08)
[2017-07-26] MEDS ORDERED: THERM PO (11:08)
[2017-07-26] MEDS ORDERED: METO25TA3 PO (11:08)
--- NOTE | 2017-07-26 11:17 | HHI.DS ---
Discharge Summary Admission Date July 17, 2017 at 11:43 Discharge Date: Jul 26, 2017 Admitting Diagnosis 1. Severe Multi Vessel Coronary Artery Disease. 2. Stable Angina 3. Alcohol Use (1) S/P CABG x 4 Diagnosis: Secondary ICD Codes: Z95.1 - Presence of aortocoronary bypass graft (2) Coronary artery disease Diagnosis: Principal ICD Codes: I25.10 - Atherosclerotic heart disease of [place] coronary artery without angina pectoris (3) Laceration Diagnosis: Secondary (4) Hypertension Diagnosis: Principal ICD Codes: I10 - Essential (primary) hypertension (5) Hypothyroidism Diagnosis: Principal ICD Codes: E03.9 - Hypothyroidism, unspecified (6) Hyperlipemia Diagnosis: Principal ICD Codes: E78.5 - Hyperlipidemia, unspecified Procedures 07/22 1. Urgent Clampless Off-pump Coronary Artery Bypass Grafting x 4 with Left Internal Mammary Artery (BRUNER) to Left Anterior Descending (LAD), reverse saphenous vein graft to the Diagonal 1 (D1) branch of the Left Anterior Descending Coronary Artery, reverse saphenous vein graft to the Obtuse Marginal 2 (OM2) branch of the Left Circumflex Coronary Artery, reverse saphenous vein graft to the Posterior Descending (RPDA) branch of the Right Coronary Artery 2. Right Leg Endoscopic Vein [place] 3. Intraoperative Vein Mapping. 07/18 pt agitation last pm , nursing eval for CIWA protocol , given ativan got out of bed , unclothed fell hit his on door jam , sustained a 4cm length and 0.2cm deep area was irrigated with normal saline , cleansed with betadine and under sterile technique 5 pilar were placed to close wound wound is now closed and approximated ancef 1 gram q8 x 3 doses and TD dose IM given fall risk precautions, consult Hospitalist for medical management Brief History A 72-year-old male transfer from [facility], had an abnormal EKG with a right bundle branch block and was told he had a probable prior [place] that he was not aware of. Had a positive stress test which showed anterior septal ischemia. The patient underwent cardiac catheterization by Dr. Eladio Davis which showed proximal disease at the bifurcation of the first diagonal. There is approximately 80-90% lesions, heavily calcified. The LAD after the first septal branch is 99-100% occluded with [place] 1 flow. The LAD fills via collaterals from the diagonal vessel in the circumflex system. The left circumflex had severe stenosis in the mid segment with an 80-90% lesion noted, 2 obtuse marginals were noted afterwards. The right coronary artery is also diseased. There is approximately a 50% lesion and a mid 90% lesion. The PDA had evidence of small aneurysm with and without another 90% lesion noted. There were collaterals from the conus branch to a probable ramus vessel on the other side versus the LAD. There was some mild left subclavian stenosis of 10- 20% lesion in the vessel. The BRUNER was widely patent. Ejection fraction 60%. He did have an echocardiogram when he had his initial workup at Dr. Brandt's office, which showed an ejection fraction of 60-65%, mild LVH, trivial to mild mitral regurgitation, mild tricuspid regurgitation. Transferred for eval for CABG bypass grafting. 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 This was contributed to some type of ALLERGIC REACTION TO A TRICHOMONAS OUTBREAK at age 26, hyperlipidemia, gastroesophageal reflux disease, questionable prior [place], hypertension, hypothyroidism. Drinks 6- 8 shots of whisky per day CBC/BMP: 07/26/17 0348 07/26/17 0348 Significant Findings Laboratory Tests Test 07/24/17 05:00 07/25/17 03:28 07/26/17 03:48 Red Blood Count 3.57 MIL/MM3 (4.50-5.90) 3.35 MIL/MM3 (4.50-5.90) 3.58 MIL/MM3 (4.50-5.90) Hemoglobin 12.0 GM/DL (13.0-17.0) 11.4 GM/DL (13.0-17.0) 12.0 GM/DL (13.0-17.0) Hematocrit 35.0 % (39.0-51.0) 32.8 % (39.0-51.0) 35.4 % (39.0-51.0) Neutrophils (%) (Auto) 81.9 % (16.0-70.0) 75.5 % (16.0-70.0) 77.5 % (16.0-70.0) Lymphocytes (%) (Auto) 6.5 % (9.0-44.0) 8.5 % (9.0-44.0) Monocytes (%) (Auto) 9.2 % (0.0-8.0) 9.0 % (0.0-8.0) 9.0 % (0.0-8.0) Lymphocytes # (Auto) 0.4 TH/MM3 (1.0-4.8) 0.7 TH/MM3 (1.0-4.8) 0.5 TH/MM3 (1.0-4.8) Total Protein 5.9 GM/DL (6.4-8.2) 6.0 GM/DL (6.4-8.2) 6.3 GM/DL (6.4-8.2) Albumin 2.9 GM/DL (3.4-5.0) 2.7 GM/DL (3.4-5.0) 2.7 GM/DL (3.4-5.0) Free Triiodothyronine (T3) pg/dL 1.65 PG/ML (2.18-3.98) Thyroid Stimulating Hormone 3rd Gen 3.770 uIU/ML (0.358-3.740) Random Glucose 72 MG/DL (74-106) Estimat Glomerular Filtration Rate 87 ML/MIN (>89) Eosinophils (%) (Auto) 4.1 % (0.0-4.0) PE at Discharge GENERAL: A&O x 3 SKIN: Warm and dry. prevena dressing to chest / incision intact to right leg HEAD: Normocephalic. EYES: No scleral icterus. No injection or drainage. NECK: Supple, trachea midline. No JVD or lymphadenopathy. CARDIOVASCULAR: Regular rate and rhythm without murmurs, gallops, or rubs. RESPIRATORY: Breath sounds equal bilaterally. No accessory muscle use. GASTROINTESTINAL: Abdomen soft, non-tender, nondistended. MUSCULOSKELETAL: No cyanosis, or edema. BACK: Nontender without obvious deformity. No CVA tenderness. Hospital Course 07/18 pt agitation last pm , nursing eval for CIWA protocol , given ativan got out of bed , unclothed fell hit his on door jam , sustained a 4cm length and 0.2cm deep area was irrigated with normal saline , cleansed with betadine and under sterile technique 5 pilar were placed to close wound wound is now closed and approximated ancef 1 gram q8 x 3 doses and TD dose IM given fall risk precautions, consult Hospitalist for medical management will now hold surgery until Saturday CT Brain: 1. Senescent changes with mild to moderate periventricular ischemic white matter demyelination. 2. No acute intracranial abnormality. 07/19 doing well, no complaints of agitation/ no tremors noted for surgery on 07/20 Doing well OR Friday 07/21 No complaints OR 07/22 surgery: 1. Urgent Clampless Off-pump Coronary Artery Bypass Grafting x 4 with Left Internal Mammary Artery (BRUNER) to Left Anterior Descending (LAD), reverse saphenous vein graft to the Diagonal 1 (D1) branch of the Left Anterior Descending Coronary Artery, reverse saphenous vein graft to the Obtuse Marginal 2 (OM2) branch of the Left Circumflex Coronary Artery, reverse saphenous vein graft to the Posterior Descending (RPDA) branch of the Right Coronary Artery 2. Right Leg Endoscopic Vein [place] 3. Intraoperative Vein Mapping. extubated after surgery crystalloid 3800cc, cell saver 600cc, EBL 1000cc 07/23 remains on low dose Paresh gtt given crystalloid last pm and colloid this am CVP 8-10 on nasal cannula , pain controlled up in chair plan is to wean Paresh as tolerated/ remain in CVICU for now 07/24 off Paresh gtt , slightly tachycardic, add low dose BB give one dose of lasix later this am stable to transfer to stepdown wean 02 as tolerated 07/25 doing well on room air chest tubes dc without difficulty eval for discharge home in am 07/26 doing well , post chest tube removal xray stable on room air stable to dc home, no further episodes of agitation since 07/18 every other staple removed from scalp Pt Condition on Discharge: Good Discharge Disposition: Disch w/ Home Health Serv Discharge Instructions DIET: Follow Instructions for: Heart Healthy Diet Activities you can perform: Full Weight Bearing, Shower Only-No Bath Activities to avoid: Strenuous Activity, Driving Additional Activity Instructio: No lifting > 8lbs or gallon of milk Follow up Referrals: Cardiology with Dr Eladio Paul [address], [place] [address] PCP Follow-up with Dr Teo Tapia [address] [place] [address] ([phone]) Surgical - 2 Weeks with Fariba Medina New Medications: Amiodarone (Amiodarone) 200 Mg Tab 200 MG PO Q12HR for heart rhythm, #28 TAB 0 Refills Atorvastatin (Atorvastatin) 40 Mg Tab 40 MG PO HS for Cholesterol Management, #30 TAB 2 Refills Clopidogrel (Plavix) 75 Mg Tab 75 MG PO DAILY for Blood Clot Prevention, #30 TAB 2 Refills Docusate Sodium (Dok) 100 Mg Cap 100 MG PO BID for Constipation, #60 CAP 0 Refills Hydrocodone/Acetaminophen (Hydrocodone-Acetamin 5-325 mg) 5 Mg-325 Mg Tablet 1 TAB PO Q4HR PRN for PAIN SCALE 1 TO 5, #30 TAB 0 Refills Metoprolol Tartrate (Metoprolol Tartrate) 25 Mg Tab 12.5 MG PO Q12HR for Blood Pressure Management, #30 TAB 2 Refills Multiple Vitamins W/ Minerals (Thera M Plus) 1 Tab 1 TAB PO DAILY for multi vitamin, #30 TAB 2 Refills Continued Medications: Aspirin (Aspirin) 81 Mg Chew 81 MG CHEW DAILY, TAB 0 Refills Levothyroxine (Levothyroxine) 25 Mcg Tab 25 MCG PO DAILY for Thyroid, #30 TAB 0 Refills Fariba Medina Jul 26, 2017 11:17
--- NOTE | 2017-07-26 11:17 | HHI.PR ---
Subjective Remarks Patient continues to do well. His ambulation is improving. Medically he has been stable in regards to vital signs and blood work. At this point he is medically clear and stable for discharge home. Cardiothoracic surgery is clearing this patient for discharge also. He will discharge home with home health. Objective Vital Signs Date Time Temp Pulse Resp B/P (MAP) Pulse Ox O2 Delivery O2 Flow Rate FiO2 07/26/17 11:00 65 07/26/17 10:00 69 07/26/17 09:00 78 07/26/17 08:04 93 21 07/26/17 08:00 75 07/26/17 07:45 98.5 81 18 125/72 (89) 96 07/26/17 07:00 82 07/26/17 06:22 78 07/26/17 05:21 82 07/26/17 04:46 74 07/26/17 03:40 70 07/26/17 03:30 97.8 81 20 111/61 (78) 94 07/26/17 02:00 79 07/26/17 01:31 74 07/26/17 00:11 77 07/25/17 23:50 98.2 85 18 117/84 (95) 95 07/25/17 23:50 74 07/25/17 22:15 81 07/25/17 21:00 80 07/25/17 20:57 96 07/25/17 20:00 79 07/25/17 19:20 98.0 81 19 123/64 (83) 94 07/25/17 19:20 82 07/25/17 18:00 86 07/25/17 17:00 80 07/25/17 16:00 76 07/25/17 15:33 97.9 74 18 120/68 (85) 96 07/25/17 15:03 96 Room Air 07/25/17 15:00 78 07/25/17 14:00 81 07/25/17 13:00 82 07/25/17 12:00 71 07/25/17 11:30 98.4 76 18 115/63 (80) 96 I/O 07/25/17 07/25/17 07/25/17 07/26/17 07/26/17 07/26/17 07:00 15:00 23:00 07:00 15:00 23:00 Intake Total 480 ml 100 ml 840 ml 480 ml Output Total 680 ml 750 ml 975 ml Balance -200 ml 100 ml 90 ml -495 ml Intake Oral 480 ml 840 ml 480 ml IV Total 100 ml Output Urine Total 550 ml 750 ml 975 ml Chest Tube Drainage Total 130 ml # Bowel Movements 0 1 0 Result Diagram: 07/26/1734707/26/17347 Objective Remarks GENERAL: NAD, A&Ox3 HEAD: Normocephalic. NECK: Supple, trachea midline. No lymphadenopathy. EYES: No scleral icterus. No injection or drainage. CARDIOVASCULAR: Regular rate and rhythm without murmurs, gallops, or rubs. RESPIRATORY: Breath sounds equal bilaterally. No accessory muscle use. GASTROINTESTINAL: Abdomen soft, non-tender, nondistended. MUSCULOSKELETAL: No cyanosis, or edema. Chest tube is in place. Anterior sternal spacer/bandage present. SKIN: Warm and dry. NEURO: No focal neurological deficitis. A/P Problem List: (1) Coronary artery disease ICD Code: I25.10 - Atherosclerotic heart disease of [place] coronary artery without angina pectoris Assessment and Plan 72 year old male admitted with symptomatic CAD. Heart cath showed multi-vessel disease. CABG recommended. Status post CABG on 07/22/2017. Patient has done well postop. Medically stable for discharge to home with home health. CAD status post CABG Cardiothoracic management post op Follow CBC, CMP PRN pain treatments Bedrest for now BP control with pressors as needed Follow oxygenation Monitor in ICU Preceeding weakness/falls PT post op HTN Follow BP and treat as needed for control Delerium Tremens CIWA protocall continued Dementia May be chronic Supportive care B12 Deficiency Replacement supplement in place Hypothyroidism Follow as an outpatient Hyperlipidemia Continue statin Follow as an outpatient GERD PPI DVT Prophylaxis SCDs Discharge Planning SNF likely needed when discharge appropriate Wing Hammond MD Jul 26, 2017 11:17
--- NOTE | 2017-07-26 12:01 | PD.CAR.PN ---
CVT Progress Note Subjective/Hospital Course: A 72-year-old male transfer from [facility], had an abnormal EKG with a right bundle branch block and was told he had a probable prior [place] that he was not aware of. Had a positive stress test which showed anterior septal ischemia. The patient underwent cardiac catheterization by Dr. Eladio Davis which showed proximal disease at the bifurcation of the first diagonal. There is approximately 80-90% lesions, heavily calcified. The LAD after the first septal branch is 99-100% occluded with [place] 1 flow. The LAD fills via collaterals from the diagonal vessel in the circumflex system. The left circumflex had severe stenosis in the mid segment with an 80-90% lesion noted, 2 obtuse marginals were noted afterwards. The right coronary artery is also diseased. There is approximately a 50% lesion and a mid 90% lesion. The PDA had evidence of small aneurysm with and without another 90% lesion noted. There were collaterals from the conus branch to a probable ramus vessel on the other side versus the LAD. There was some mild left subclavian stenosis of 10- 20% lesion in the vessel. The BRUNER was widely patent. Ejection fraction 60%. He did have an echocardiogram when he had his initial workup at Dr. Brandt's office, which showed an ejection fraction of 60-65%, mild LVH, trivial to mild mitral regurgitation, mild tricuspid regurgitation. Transferred for eval for CABG bypass grafting. 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 This was contributed to some type of ALLERGIC REACTION TO A TRICHOMONAS OUTBREAK at age 26, hyperlipidemia, gastroesophageal reflux disease, questionable prior [place], hypertension, hypothyroidism. Drinks 6- 8 shots of whisky per day 07/18 pt agitation last pm , nursing eval for CIWA protocol , given ativan got out of bed , unclothed fell hit his on door jam , sustained a 4cm length and 0.2cm deep area was irrigated with normal saline , cleansed with betadine and under sterile technique 5 pilar were placed to close wound wound is now closed and approximated ancef 1 gram q8 x 3 doses and TD dose IM given fall risk precautions, consult Hospitalist for medical management will now hold surgery until Saturday CT Brain: 1. Senescent changes with mild to moderate periventricular ischemic white matter demyelination. 2. No acute intracranial abnormality. 07/19 doing well, no complaints of agitation/ no tremors noted for surgery on 07/20 Doing well OR Friday 07/21 No complaints OR 07/22 surgery: 1. Urgent Clampless Off-pump Coronary Artery Bypass Grafting x 4 with Left Internal Mammary Artery (BRUNER) to Left Anterior Descending (LAD), reverse saphenous vein graft to the Diagonal 1 (D1) branch of the Left Anterior Descending Coronary Artery, reverse saphenous vein graft to the Obtuse Marginal 2 (OM2) branch of the Left Circumflex Coronary Artery, reverse saphenous vein graft to the Posterior Descending (RPDA) branch of the Right Coronary Artery 2. Right Leg Endoscopic Vein [place] 3. Intraoperative Vein Mapping. extubated after surgery crystalloid 3800cc, cell saver 600cc, EBL 1000cc 07/23 remains on low dose Paresh gtt given crystalloid last pm and colloid this am CVP 8-10 on nasal cannula , pain controlled up in chair plan is to wean Paresh as tolerated/ remain in CVICU for now 07/24 off Paresh gtt , slightly tachycardic, add low dose BB give one dose of lasix later this am stable to transfer to stepdown wean 02 as tolerated 07/25 doing well on room air chest tubes dc without difficulty eval for discharge home in am 07/26 The radiographic abnormality identified on the CXR as a potential foreign body/ catheter is calcific plaque in the ascending aorta. In the OR it was noted that his ascending aorta was nearly [place]. Objective: Vital Signs Date Time Temp Pulse Resp B/P (MAP) Pulse Ox O2 Delivery O2 Flow Rate FiO2 07/26/17 11:00 65 07/26/17 10:00 69 07/26/17 09:00 78 07/26/17 08:04 93 21 07/26/17 08:00 75 07/26/17 07:45 98.5 81 18 125/72 (89) 96 07/26/17 07:00 82 07/26/17 06:22 78 07/26/17 05:21 82 07/26/17 04:46 74 07/26/17 03:40 70 07/26/17 03:30 97.8 81 20 111/61 (78) 94 07/26/17 02:00 79 07/26/17 01:31 74 6/1/18 00:11 77 07/25/17 23:50 98.2 85 18 117/84 (95) 95 07/25/17 23:50 74 07/25/17 22:15 81 07/25/17 21:00 80 07/25/17 20:57 96 07/25/17 20:00 79 07/25/17 19:20 98.0 81 19 123/64 (83) 94 07/25/17 19:20 82 07/25/17 18:00 86 07/25/17 17:00 80 07/25/17 16:00 76 07/25/17 15:33 97.9 74 18 120/68 (85) 96 07/25/17 15:03 96 Room Air 07/25/17 15:00 78 07/25/17 14:00 81 07/25/17 13:00 82 07/25/17 12:00 71 Labs: Laboratory Tests Test 07/26/17 03:48 White Blood Count 5.9 TH/MM3 (4.0-11.0) Red Blood Count 3.58 MIL/MM3 (4.50-5.90) Hemoglobin 12.0 GM/DL (13.0-17.0) Hematocrit 35.4 % (39.0-51.0) Mean Corpuscular Volume 98.9 FL (80.0-100.0) Mean Corpuscular Hemoglobin 33.6 PG (27.0-34.0) Mean Corpuscular Hemoglobin Concent 34.0 % (32.0-36.0) Red Cell Distribution Width 14.9 % (11.6-17.2) Platelet Count 270 TH/MM3 (150-450) Mean Platelet Volume 8.3 FL (7.0-11.0) Neutrophils (%) (Auto) 77.5 % (16.0-70.0) Lymphocytes (%) (Auto) 8.5 % (9.0-44.0) Monocytes (%) (Auto) 9.0 % (0.0-8.0) Eosinophils (%) (Auto) 4.1 % (0.0-4.0) Basophils (%) (Auto) 0.9 % (0.0-2.0) Neutrophils # (Auto) 4.6 TH/MM3 (1.8-7.7) Lymphocytes # (Auto) 0.5 TH/MM3 (1.0-4.8) Monocytes # (Auto) 0.5 TH/MM3 (0-0.9) Eosinophils # (Auto) 0.2 TH/MM3 (0-0.4) Basophils # (Auto) 0.1 TH/MM3 (0-0.2) CBC Comment DIFF FINAL Differential Comment Blood Urea Nitrogen 11 MG/DL (7-18) Creatinine 0.80 MG/DL (0.60-1.30) Random Glucose 76 MG/DL (74-106) Total Protein 6.3 GM/DL (6.4-8.2) Albumin 2.7 GM/DL (3.4-5.0) Calcium Level 8.5 MG/DL (8.5-10.1) Alkaline Phosphatase 56 U/L (45-117) Aspartate Amino Transf (AST/SGOT) 18 U/L (15-37) Alanine Aminotransferase (ALT/SGPT) 12 U/L (12-78) Total Bilirubin 0.6 MG/DL (0.2-1.0) Sodium Level 140 MEQ/L (136-145) Potassium Level 3.8 MEQ/L (3.5-5.1) Chloride Level 106 MEQ/L (98-107) Carbon Dioxide Level 22.2 MEQ/L (21.0-32.0) Anion Gap 12 MEQ/L (5-15) Estimat Glomerular Filtration Rate 94 ML/MIN (>89) Result Diagram: 07/26/1734707/26/17347 (1) S/P CABG x 4 Plan: ASA, statin ,start BB 2/2 pulm toileting OOB / PT CM eval for HHC at discharge chest tube dc (2) Hyperlipemia Plan: on statin (3) Hypothyroidism Plan: on Synthroid (4) Hypertension Plan: BP labile (5) Coronary artery disease Plan: ASA, start BB (6) ETOH abuse Plan: CIWA protocol dc / resolved (7) Laceration Plan: pilar to occipital area ancef x 3 doses TD dose leave pilar in total 10 days to be removed 07/28 Jessica Denise MD Jul 26, 2017 12:01
== END 2017-07-26 13:15 | disposition home health service (06) | DRG 236 ==
LOC: HCPC 11:43 → HCVI 07-22 13:15 → HCPC 07-24 11:30
PROVIDERS: ADMIT Thoracic Surgery (Cardiothoracic Vascular Surgery); ATTEND Thoracic Surgery (Cardiothoracic Vascular Surgery)
PROC: 0HQ0XZZ Repair Scalp Skin, External Approach (ICD-10-PCS; 2017-07-18)
PROC: 06BP4ZZ Excision of Right Saphenous Vein, Percutaneous Endoscopic Approach (ICD-10-PCS; 2017-07-22)
PROC: 02100Z9 Bypass Coronary Artery, One Artery from Left Internal Mammary, Open Approach (ICD-10-PCS; principal; 2017-07-22 07:21)
PROC: 021209W Bypass Coronary Artery, Three Arteries from Aorta with Autologous Venous Tissue, Open Approach (ICD-10-PCS; 2017-07-22 07:21)
DX: I25.118 Atherosclerotic heart disease of native coronary artery with other forms of angina pectoris (principal); I25.82 Chronic total occlusion of coronary artery; F03.90 Unspecified dementia, unspecified severity, without behavioral disturbance, psychotic disturbance, mood disturbance, and anxiety; I69.354 Hemiplegia and hemiparesis following cerebral infarction affecting left non-dominant side; I45.10 Unspecified right bundle-branch block; I10 Essential (primary) hypertension; E78.5 Hyperlipidemia, unspecified; I70.8 Atherosclerosis of other arteries; E03.9 Hypothyroidism, unspecified; F10.10 Alcohol abuse, uncomplicated; K21.9 Gastro-esophageal reflux disease without esophagitis; Z96.643 Presence of artificial hip joint, bilateral; E53.8 Deficiency of other specified B group vitamins; R00.0 Tachycardia, unspecified; I25.2 Old myocardial infarction; Z79.82 Long term (current) use of aspirin; Z87.891 Personal history of nicotine dependence; W19.XXXA Unspecified fall, initial encounter; Y92.230 Patient room in hospital as the place of occurrence of the external cause
CPT/HCPCS: 70450; 71045; 71046; 71250; 76937; 80053; 80061; 81001; 82607; 82948; 83036; 83735; 84436; 84443; 84481; 85025; 85610; 86850; 86900; 86901; 86920; 87641; 90714; 93005; 93880; 93970; 93998; 94002; 94010; 94150; 94640; 94664; 94667; 94668; C1768; J0131; J0461; J0690; J1250; J1644; J1817; J1885; J1940; J2060; J2250; J2370; J2710; J2720; J2765; J3010; J3370; J3420; J3475; J3480; J7040; J7050; J7060; J7120; P9045